=== PATIENT | female | born 1950 | race Caucasian/White ===

== ENCOUNTER 2021-04-10 09:21 | Inpatient (IN) | payer MEDICARE, OTHER ==
[2021-04-10] MEDS ORDERED: HEPARIN SODIUM 1,000 UN/ML (10ML VL) IV ONE (09:40)
[2021-04-10] MEDS ORDERED: HEPARIN SODIUM 1,000 UN/ML (10ML VL) IV PRN (09:40)
[2021-04-10] MEDS ORDERED: DILTIAZEM DRIP BOLUS FROM BAG 1 MG SOLN IV ONE (09:40)
[2021-04-10 09:52] LABS: Basophils # (A) 0.1 k/uL (0-0.2); Basophils % (A) 1 %; Eosinophils # (A) 0.2 k/uL (0-0.7); Eosinophils % (A) 2 %; HGB 15.2 gm/dL (11.4-16.0); Lymphocytes # (A) 2.5 k/uL (1.0-4.8); Lymphocytes % (A) 28 %; MCHC 32.4 g/dL (31.0-37.0); MCV 92.5 fL (80.0-100.0); Mean Platelet Volume 7.8; Monocytes # (A) 0.3 k/uL (0-1.0); Monocytes % (A) 4 %; Neutrophils # (A) 5.6 k/uL (1.3-7.7); Neutrophils % (A) 64 %; Platelet Count 352 k/uL (150-450); RBC 5.08 m/uL (3.80-5.40); RDW 14.3 % (11.5-15.5); WBC 8.7 k/uL (3.8-10.6)
[2021-04-10] MEDS: HEPARIN SOD,PORK IN 0.45% NACL 25,000 UNIT in 0.45% NACL 1 250ML.BAG IV SCH (09:58)
[2021-04-10] MEDS ORDERED: DILTIAZEM 125 MG in SODIUM CHLORIDE 0.9% 100 ML IV SCH (10:00)
[2021-04-10 10:03] LABS: Partial Thromboplastin Time 22.8 sec (22.0-30.0); Prothrombin Time 10.3 sec (9.0-12.0)
[2021-04-10 10:06] LABS: Albumin 4.6 g/dL (3.5-5.0); Calcium 9.8 mg/dL (8.4-10.2); Potassium 4.2 mmol/L (3.5-5.1); Total Bilirubin 0.5 mg/dL (0.2-1.3); Total Protein 7.6 g/dL (6.3-8.2)
--- NOTE | 2021-04-10 10:10 | XR ---
EXAMINATION TYPE: XR chest 2V DATE OF EXAM: 04/10/2021 COMPARISON: None HISTORY: 70-year-old female elevated heart rate, dysrhythmia TECHNIQUE: PA and lateral views FINDINGS: The cardiomediastinal silhouette, aorta, and pulmonary vasculature are within normal limits. Hazy low er lung opacities related to overlying soft tissue. Otherwise, lungs and pleural spaces are clear. IMPRESSION: No acute cardiopulmonary process.
--- NOTE | 2021-04-10 10:15 | ED ---
Arrhythmia/Palpitations HPI - General Source: patient, RN notes reviewed Mode of arrival: wheelchair Limitations: no limitations <Fan Justice - Last Filed: 04/10/21 11:34> <Vinay Gonzalez - Last Filed: 04/10/21 13:21> - General Chief Complaint: Arrhythmia/Palpitations Stated Complaint: palpitations Time Seen by Provider: 04/10/21 09:33 - History of Present Illness Initial Comments: This a 70-year-old female presents emergency from chief complaint of palpitations. Patient states that she has not felt well the last few days. Patient went to [facility] and told she needs go the emergency department. Patient states she has no chest pains time she occasionally has some shortness of breath. Patient states that she has no prior cardiac disease denies any blood thinners denies any leg pain leg swelling. Patient does have a history of hypothyroidism. Patient's had no medication changes recently has been taking her doses. (Fan Justice) - Related Data Home Medications Medication Instructions Recorded Confirmed Levothyroxine Sodium 88 mcg PO DAILY 04/10/21 04/10/21 Allergies Allergy/AdvReac Type Severity Reaction Status Date / Time No Known Allergies Allergy Verified 04/10/21 09:28 Review of Systems ROS Other: All systems not noted in ROS Statement are negative. <Fan Justice - Last Filed: 04/10/21 11:34> ROS Other: All systems not noted in ROS Statement are negative. <Vinay Gonzalez - Last Filed: 04/10/21 13:21> ROS Statement: Those systems with pertinent positive or pertinent negative responses have been documented in the HPI. Past Medical History Past Medical History: Thyroid Disorder History of Any Multi-Drug Resistant Organisms: None Reported Past Surgical History: Hysterectomy, Orthopedic Surgery Additional Past Surgical History / Comment(s): hip surgery Past Psychological History: No Psychological Hx Reported Smoking Status: Former smoker Past Alcohol Use History: Occasional Past Drug Use History: None Reported <Fan Justice - Last Filed: 04/10/21 11:34> General Exam Limitations: no limitations General appearance: alert, in no apparent distress Head exam: Present: atraumatic, normocephalic, normal inspection Eye exam: Present: normal appearance, PERRL, EOMI. Absent: scleral icterus, conjunctival injection, periorbital swelling ENT exam: Present: normal exam, mucous membranes moist Neck exam: Present: normal inspection. Absent: tenderness, meningismus, lymphadenopathy Respiratory exam: Present: normal lung sounds bilaterally. Absent: respiratory distress, wheezes, rales, rhonchi, stridor Cardiovascular Exam: Present: tachycardia, irregular rhythm, normal heart sounds. Absent: regular rate, normal rhythm, systolic murmur, diastolic murmur, rubs, gallop, clicks GI/Abdominal exam: Present: soft, normal bowel sounds. Absent: distended, tenderness, guarding, rebound, rigid <Fan Justice - Last Filed: 04/10/21 11:34> Course <Vinay Gonzalez - Last Filed: 04/10/21 13:21> Vital Signs 04/10/21 04/10/21 04/10/21 09:24 09:49 12:09 Temperature 98.4 F Pulse Rate 169 H 158 H 115 H Respiratory 16 20 18 Rate Blood Pressure 160/92 173/117 140/75 O2 Sat by Pulse 97 99 99 Oximetry - Reevaluation(s) Reevaluation #1: 04/10/21 13:20 I did personally evaluate the patient and care I do agree with assessment and plan patient comes in with findings consistent with A. flutter RVR. He admitted 04/10/21 13:21 (Vinay Gonzalez) EKG Findings - EKG Comments: EKG Findings:: EKG 499:30 for atrial flutter with 2-1 rate of 157 QRS 82 QT/QTc to 232/375 <Fan Justice - Last Filed: 04/10/21 11:34> Medical Decision Making - Lab Data Result diagrams: 04/10/21 09:44 04/10/21 09:44 <Fan Justice - Last Filed: 04/10/21 11:34> - Lab Data Result diagrams: 04/10/21 09:44 04/10/21 09:44 <Vinay Gonzalez - Last Filed: 04/10/21 13:21> - Medical Decision Making 70-year-old female presented for palpitations. Patient found to be in a flutter, A. fib. Patient has no history. Patient started on Cardizem, heparin. Patient lives otherwise unremarkable be admitted for cardiology evaluation. (Fan Justice) - Lab Data Lab Results 04/10/21 04/10/2104/10/21 Range/Units 09:44 09:44 09:44 WBC (3.8-10.6) k/uL RBC (3.80-5.40) m/uL Hgb (11.4-16.0) gm/dL Hct (34.0-46.0) % MCV (80.0-100.0) fL MCH (25.0-35.0) pg MCHC (31.0-37.0) g/dL RDW (11.5-15.5) % Plt Count (150-450) k/uL MPV Neutrophils % % Lymphocytes % % Monocytes % % Eosinophils % % Basophils % % Neutrophils # (1.3-7.7) k/uL Lymphocytes # (1.0-4.8) k/uL Monocytes # (0-1.0) k/uL Eosinophils # (0-0.7) k/uL Basophils # (0-0.2) k/uL PT 10.3 (9.0-12.0) sec INR 1.0 (<1.2) APTT 22.8 (22.0-30.0) sec Sodium 143 (137-145) mmol/L Potassium 4.2 (3.5-5.1) mmol/L Chloride 110 H (98-107) mmol/L Carbon Dioxide 26 (22-30) mmol/L Anion Gap 7 mmol/L BUN 15 (7-17) mg/dL Creatinine 0.86 (0.52-1.04) mg/dL Est GFR (CKD-EPI)AfAm 80 (>60 ml/min/1.73 sqM) Est GFR (CKD-EPI)NonAf 70 (>60 ml/min/1.73 sqM) Glucose 107 H (74-99) mg/dL Calcium 9.8 (8.4-10.2) mg/dL Magnesium 2.0 (1.6-2.3) mg/dL Total Bilirubin 0.5 (0.2-1.3) mg/dL AST 27 (14-36) U/L ALT 18 (4-34) U/L Alkaline Phosphatase 120 (38-126) U/L Troponin I <0.012 (0.000-0.034) ng/mL Total Protein 7.6 (6.3-8.2) g/dL Albumin 4.6 (3.5-5.0) g/dL 04/10/21 Range/Units 09:44 WBC 8.7 (3.8-10.6) k/uL RBC 5.08 (3.80-5.40) m/uL Hgb 15.2 (11.4-16.0) gm/dL Hct 47.0 H (34.0-46.0) % MCV 92.5 (80.0-100.0) fL MCH 30.0 (25.0-35.0) pg MCHC 32.4 (31.0-37.0) g/dL RDW 14.3 (11.5-15.5) % Plt Count 352 (150-450) k/uL MPV 7.8 Neutrophils % 64 % Lymphocytes % 28 % Monocytes % 4 % Eosinophils % 2 % Basophils % 1 % Neutrophils # 5.6 (1.3-7.7) k/uL Lymphocytes # 2.5 (1.0-4.8) k/uL Monocytes # 0.3 (0-1.0) k/uL Eosinophils # 0.2 (0-0.7) k/uL Basophils # 0.1 (0-0.2) k/uL PT (9.0-12.0) sec INR (<1.2) APTT (22.0-30.0) sec Sodium (137-145) mmol/L Potassium (3.5-5.1) mmol/L Chloride (98-107) mmol/L Carbon Dioxide (22-30) mmol/L Anion Gap mmol/L BUN (7-17) mg/dL Creatinine (0.52-1.04) mg/dL Est GFR (CKD-EPI)AfAm (>60 ml/min/1.73 sqM) Est GFR (CKD-EPI)NonAf (>60 ml/min/1.73 sqM) Glucose (74-99) mg/dL Calcium (8.4-10.2) mg/dL Magnesium (1.6-2.3) mg/dL Total Bilirubin (0.2-1.3) mg/dL AST (14-36) U/L ALT (4-34) U/L Alkaline Phosphatase (38-126) U/L Troponin I (0.000-0.034) ng/mL Total Protein (6.3-8.2) g/dL Albumin (3.5-5.0) g/dL Critical Care Time Critical Care Time: Yes Total Critical Care Time: 35 <Fan Justice - Last Filed: 04/10/21 11:34> Disposition <Fan Justice - Last Filed: 04/10/21 11:34> <Vinay Gonzalez - Last Filed: 04/10/21 13:21> Clinical Impression: Atrial flutter with rapid ventricular response Disposition: ADMITTED IP TO THIS HOSP Condition: Fair
[2021-04-10] MEDS ORDERED: NALOXONE 0.4 MG/ML 1 ML VIAL IV PRN ×2 (11:35→14:41)
[2021-04-10] MEDS ORDERED: ACETAMINOPHEN TAB 325 MG TAB PO PRN (11:35)
[2021-04-10] MEDS ORDERED: DILTIAZEM 5 MG/ML 5 ML VIAL IVP STA (11:43)
[2021-04-10] MEDS ORDERED: METOPROLOL TARTRATE 25 MG TAB PO STA (13:49)
[2021-04-10] MEDS ORDERED: SODIUM CHLORIDE 0.9% 500 ML 500 ML IV ONE (13:49)
[2021-04-10] MEDS: DILTIAZEM 125 MG in SODIUM CHLORIDE 0.9% 100 ML IV SCH ×2 (13:50→20:59)
[2021-04-10] MEDS ORDERED: HYDROcodone/APAP 5-325MG 1 EACH TAB PO PRN (14:41)
--- NOTE | 2021-04-10 14:53 | P.HPIM ---
<Reji Crabtree - Last Filed: 04/10/21 14:38> History of Present Illness H&P Date: 04/10/21 History of Presenting Illness: Patient is a 70-year-old female with past medical history of hypothyroidism presented to the emergency department with a chief complaint of palpitations. Patient seen and fully evaluated at bedside in the emergency department and reports that she began experiencing intermittent episodes of palpitations accompanied by a tightness in her throat and dizziness on and off over the past few days. Patient reports upon awakening today these palpitations were s ignificantly worsened so she went to the urgent care center and was instructed to go straight to the emergency department. She denies having any recent changes and her Synthroid dosage and denies having any other complaints including recent illness or exposure to known L contact, headache, changes in vision or hearing, changes in or difficulties with speech, chest pain, shortness of breath, dyspnea with exertion, abdominal pain, nausea, vomiting, or experiencing any changes in her difficulties with urinary or bowel function, or experiencing any numbness/tingling/weakness/swelling in her extremities. An EKG was completed revealing atrial fibrillation with a rapid ventricular response at 157 bpm. Labs were drawn with CBC, Coags, CMP, and troponin all unremarkable showing no abnormalities. Patient was started on Cardizem infusion for rate control a along with anticoagulation for heparin admitted under our services with consultation to cardiology. Review of systems: Pertinent positives and negatives as discussed in HPI, a complete review of systems was performed and all other systems are negative. Physical exam: Vital signs reviewed and stable. General: Nontoxic, no distress and appears stated age. Derm: Skin warm and dry, normal coloration for ethnicity. Head: Atraumatic, normocephalic and symmetric. Eyes: EOMs intact, no lid lag, and anicteric sclera Mouth: no lip lesions, mucus membranes moist Cardiovascular: regular rate and rhythm with normal S1S2, no murmur, positive posterior tibial pulses bilaterally, and cap refill < 2 seconds. Lungs: Respirations even, regular, and unlabored on room air. Lungs CTA bilaterally, no rhonchi, no rales, no wheezing, and no accessory muscle usage. Abdominal: soft, nontender to palpation, no guarding, no appreciable organomegaly Ext: ROM intact. No gross muscle atrophy, no edema, no contractures Neuro: Speech clear, face symmetrical and CN II-XII grossly intact with no noted focal neuro deficits Psych: Alert and oriented to person, place, time, and situation. Appropriate and pleasant affect. Assessment and Plan of Care: Atrial fibrillation with RVR -EKG was completed revealing atrial fibrillation with a rapid ventricular response at 157 bpm. -Troponin<0.012, we will trend every 3 hours 2. -Anticoagulation with heparin infusion, pharmacy to dose. [id number] score 1. -Continuation of Cardizem infusion titrating to maintain ventricular rate less than 110 bpm. -Metoprolol 25 mg twice a day. -Telemetry monitoring. -Consult to cardiology, appreciate recommendations. -Obtain TSH -Echocardiogram. Hypothyroidism -Hold Synthroid pending TSH results The patient is admitted with an anticipated greater than 2 midnight stay for evaluation of new onset atrial fibrillation with RVR CODE STATUS: Full code DVT prophylaxis: Heparin Discussed with: Patient, patient has been, and RN Anticipated discharge date: Clinical course to determine Anticipated discharge place: Home A total of 45 minutes was spent on the care of this complex patient more than 50% of the time was spent in counseling and care coordination. Past Medical History Past Medical History: Thyroid Disorder History of Any Multi-Drug Resistant Organisms: None Reported Past Surgical History: Hysterectomy, Orthopedic Surgery Additional Past Surgical History / Comment(s): hip surgery Past Psychological History: No Psychological Hx Reported Smoking Status: Former smoker Past Alcohol Use History: Occasional Past Drug Use History: None Reported Medications and Allergies Home Medications Medication Instructions Recorded Confirmed Type Levothyroxine Sodium 88 mcg PO DAILY 04/10/21 04/10/21 History Allergies Allergy/AdvReac Type Severity Reaction Status Date / Time No Known Allergies Allergy Verified 04/10/21 09:28 Physical Exam Vitals: Vital Signs Temp Pulse Resp BP Pulse Ox 04/10/21 12:09 115 H 18 140/75 99 04/10/21 09:49 158 H 20 173/117 99 04/10/21 09:24 98.4 F 169 H 16 160/92 97 Intake and Output 04/09/21 04/10/21 04/10/21 22:59 06:59 14:59 Intake Total 8.5 Balance 8.5 Intake: Intake, IV Titration 8.5 Amount Diltiazem 125 mg In 8.5 Sodium Chloride 0.9% 100 ml @ 5 MG/HR 5 mls/hr IV .Q24H [facility] Rx#:[id number] Other: Weight 79.379 kg Results CBC & Chem 7: 04/10/21 09:44 04/10/21 09:44 Labs: Abnormal Lab Results - Last 24 Hours (Table) 04/10/21 04/10/21 Range/Units 09:44 09:44 Hct 47.0 H (34.0-46.0) % Chloride 110 H (98-107) mmol/L Glucose 107 H (74-99) mg/dL <Martina Duncan - Last Filed: 04/10/21 19:43> History of Present Illness Patient seen and examined independently. Patient was also seen by Reji Crabtree NP and case was discussed. I am in agreement with subjective, physical exam, assessment and plan as written above and amended below. Excoriation can still feel her palpitations. On assessment her heart rate was still in the 160s. Nursing will increase Cardizem drip to 15. Ativan oral dose of metoprolol 25 mg. Patient reports that she has had low heart rates after taking a blood pressure medication in the past. We'll monitor closely on telemetry. General: non toxic, no distress, appears at stated age Derm: warm, dry Head: atraumatic, normocephalic, symmetric Eyes: EOMI, no lid lag, anicteric sclera Mouth: no lip lesion, mucus membranes moist Cardiovascular: [S1S2 irreg, no murmur, positive posterior tibial pulse bilateral, Lungs: CTA bilateral, no rhonchi, no rales , no accessory muscle use Past Medical History - Past Family History Father Family Medical History: Cancer Additional Family Medical History / Comment(s): lung cancer, ETOH Mother Family Medical History: COPD Sister(s) Family Medical History: Cancer, Hypertension Physical Exam Osteopathic Statement: *. No significant issues noted on an osteopathic structural exam other than those noted in the History and Physical/Consult. Vitals: Vital Signs Temp Pulse Pulse Resp BP BP Pulse Ox 04/10/21 15:45 98.2 F 70 16 158/72 98 04/10/21 13:54 100 18 103/78 96 04/10/21 12:09 115 H 18 140/75 99 04/10/21 09:49 158 H 20 173/117 99 04/10/21 09:24 98.4 F 169 H 16 160/92 97 Intake and Output 04/10/21 04/10/21 04/10/21 06:59 14:59 22:59 Intake Total 29.667 540 Balance 29.667 540 Intake: Intake, IV Titration 29.667 Amount Diltiazem 125 mg In 29.667 Sodium Chloride 0.9% 100 ml @ 5 MG/HR 5 mls/hr IV .Q24H [facility] Rx#:[id number] Oral 540 Other: # Voids 1 Weight 79.379 kg 79.379 kg Results CBC & Chem 7: 04/10/21 09:44 04/10/21 09:44 Labs: Abnormal Lab Results - Last 24 Hours (Table) 04/10/21 04/10/21 04/10/21 Range/Units 09:44 09:44 09:44 Hct 47.0 H (34.0-46.0) % APTT (22.0-30.0) sec Chloride 110 H (98-107) mmol/L Glucose 107 H (74-99) mg/dL TSH 0.221 L (0.465-4.680) mIU/L 04/10/21 Range/Units 17:31 Hct (34.0-46.0) % APTT 44.7 H (22.0-30.0) sec Chloride (98-107) mmol/L Glucose (74-99) mg/dL TSH (0.465-4.680) mIU/L
[2021-04-10 15:16] LABS: T4, Free (Free Thyroxine) 1.84 ng/dL (0.78-2.19)
[2021-04-10] MEDS ORDERED: ONDANSETRON 4 MG/2 ML VIAL IVP PRN (18:42)
[2021-04-10] MEDS ORDERED: METOPROLOL TARTRATE 25 MG TAB PO SCH (21:00)
[2021-04-11 04:45] VITALS: RESP 16
[2021-04-11] MEDS: DILTIAZEM 125 MG in SODIUM CHLORIDE 0.9% 100 ML IV SCH (08:23)
[2021-04-11] MEDS: METOPROLOL TARTRATE 50 MG TAB PO SCH ×2 (08:42→20:38)
[2021-04-11] MEDS: HEPARIN SOD,PORK IN 0.45% NACL 25,000 UNIT in 0.45% NACL 1 250ML.BAG IV SCH (08:52)
--- NOTE | 2021-04-11 09:53 | P.PN ---
<Reji Crabtree - Last Filed: 04/11/21 11:03> Subjective Progress Note Date: 04/11/21 History of Presenting Illness: Patient is a 70-year-old female with past medical history of hypothyroidism presented to the emergency department with a chief complaint of palpitations. Patient seen and fully evaluated at bedside in the emergency department and reports that she began experiencing intermittent episodes of palpitations accompanied by a tightness in her throat and dizziness on and off over the past few days. Patient reports upon awakening today these palpitations were signifi cantly worsened so she went to the urgent care center and was instructed to go straight to the emergency department. She denies having any recent changes and her Synthroid dosage and denies having any other complaints including recent illness or exposure to known L contact, headache, changes in vision or hearing, changes in or difficulties with speech, chest pain, shortness of breath, dyspnea with exertion, abdominal pain, nausea, vomiting, or experiencing any changes in her difficulties with urinary or bowel function, or experiencing any numbness/tingling/weakness/swelling in her extremities. An EKG was completed revealing atrial fibrillation with a rapid ventricular response at 157 bpm. Labs were drawn with CBC, Coags, CMP, and troponin all unremarkable showing no abnormalities. Patient was started on Cardizem infusion for rate control a along with anticoagulation for heparin admitted under our services with consultation to cardiology. Cardizem infusion was discontinued and pt started on Flecainide by cardiology. Physical exam: Pt seen and fully evaluated at the bedside this morning. She reports she continues to have palpitations and episodes of lightheadedness. She denies having any headache, changes in vision, changes in hearing, changes in or difficulties with her speech, dysphasia, chest pain, shortness of breath, or exp eriencing any numbness/tingling/weakness/swelling in her extremities. Patient remains in A. fib with rate fluctuating between 90s and 110s at time of assessment. TSH was low at 0.221 however free T4 was normal at 1.84. She currently remains on anticoagulation with heparin infusion, Eliquis prescription has been sent to pharmacy to verify insurance coverage and patient will be changed over to oral anticoagulation once insurance verification on which oral anticoagulant is covered can be completed. Cardizem infusion discontinued and patient started on flecainide and Toprol dose increased to 50 mg twice daily. Vital signs reviewed and stable. General: Nontoxic, no distress and appears stated age. Derm: Skin warm and dry, normal coloration for ethnicity. Head: Atraumatic, normocephalic and symmetric. Eyes: EOMs intact, no lid lag, and anicteric sclera Mouth: no lip lesions, mucus membranes moist Cardiovascular: IRREGULARLY IRREGULAR, no murmur, positive posterior tibial pulses bilaterally, and cap refill < 2 seconds. Lungs: Respirations even, regular, and unlabored on room air. Lungs CTA bilaterally, no rhonchi, no rales, no wheezing, and no accessory muscle usage. Abdominal: soft, nontender to palpation, no guarding, no appreciable organomegaly Ext: ROM intact. No gross muscle atrophy, no edema, no contractures Neuro: Speech clear, face symmetrical and CN II-XII grossly intact with no noted focal neuro deficits Psych: Alert and oriented to person, place, time, and situation. Appropriate and pleasant affect. Assessment and Plan of Care: Atrial fibrillation with RVR -EKG was completed revealing atrial fibrillation with a rapid ventricular response at 157 bpm. -Troponin<0.012, we will trend every 3 hours 2. -Anticoagulation with heparin infusion, pharmacy to dose. [id number] score 1. -Cardizem infusion was discontinued and pt started on Flecainide by cardiology. Currently pt remains in a-fib with rate at time of assessment fluctuating between 90's-110's. -Metoprolol increased to 50 mg twice a day. -Telemetry monitoring. -Cardiology following, appreciate further recommendations. -TSH slightly low at 0.221, however free T4 was normal at 1.84. Synthroid dose decreased to 50 g daily. -Echocardiogram. Hypothyroidism -TSH slightly low at 0.221, however free T4 was normal at 1.84. -Synthroid dose decreased to 50 g daily. -Patient to be educated upon discharge that she will need to follow up with her PCP/crossbar frame wirer for repeat testing of thyroid function in approximately 6-8 weeks. CODE STATUS: Full code DVT prophylaxis: Heparin Discussed with: Patient, patient has been, and RN Anticipated discharge date: Clinical course to determine Anticipated discharge place: Home A total of 45 minutes was spent on the care of this complex patient more than 50% of the time was spent in counseling and care coordination. Objective - Vital Signs Vital signs: Vital Signs Temp 98.2 F 04/11/21 08:00 Pulse 80 04/11/21 08:00 Resp 16 04/11/21 08:00 BP 134/77 04/11/21 08:00 Pulse Ox 96 04/11/21 08:00 Intake & Output 04/10/21 04/11/21 04/11/21 18:59 06:59 18:59 Intake Total 569.667 107.25 399.081 Balance 569.667 107.25 399.081 Weight 79.379 kg 79.2 kg Intake: Intake, IV Titration 29.667 107.25 399.081 Amount Diltiazem 125 mg In 107.25 85.625 Sodium Chloride 0.9% 100 ml @ 15 MG/HR 15 mls/hr IV .Q8H20M [facility] Rx#: [id number] Diltiazem 125 mg In 29.667 95.333 Sodium Chloride 0.9% 100 ml @ 5 MG/HR 5 mls/hr IV .Q24H [facility] Rx#:[id number] Heparin Sod,Pork in 0.45% 218.123 NaCl 25,000 unit In 0.45 % NaCl 1 250ml.bag @ 12 UNITS/KG/HR 9.525 mls/hr IV .Q24H [facility] Rx#: [id number] Oral 540 Other: Voiding Method Toilet # Voids 1 1 - Labs CBC & Chem 7: 04/10/21 09:44 04/10/21 09:44 Labs: Abnormal Lab Results - Last 24 Hours (Table) 04/10/21 04/10/21 04/10/21 Range/Units 09:44 09:44 09:44 Hct 47.0 H (34.0-46.0) % APTT (22.0-30.0) sec Chloride 110 H (98-107) mmol/L Glucose 107 H (74-99) mg/dL TSH 0.221 L (0.465-4.680) mIU/L 04/10/21 Range/Units 17:31 Hct (34.0-46.0) % APTT 44.7 H (22.0-30.0) sec Chloride (98-107) mmol/L Glucose (74-99) mg/dL TSH (0.465-4.680) mIU/L <Martina Duncan A - Last Filed: 04/11/21 19:40> Subjective Reji Crabtree NP rendered care for this patient independently, reviewed the f indings and plan as documented in the note above. I did not physically speak with or examine the patient on this date. Objective - Vital Signs Vital signs: Vital Signs Temp 98 F 04/11/21 16:00 Pulse 67 04/11/21 12:00 Resp 16 04/11/21 16:00 BP 140/64 04/11/21 16:00 Pulse Ox 98 04/11/21 16:00 Intake & Output 04/11/21 04/11/21 04/12/21 06:59 18:59 06:59 Intake Total 107.25 667.021 Balance 107.25 667.021 Weight 79.2 kg Intake: Intake, IV Titration 107.25 427.021 Amount Diltiazem 125 mg In 95.333 Sodium Chloride 0.9% 100 ml @ 5 MG/HR 5 mls/hr IV .Q24H [facility] Rx#:[id number] Diltiazem 125 mg In 107.25 85.625 Sodium Chloride 0.9% 100 ml @ 5 MG/HR 5 mls/hr IV .Q24H [facility] Rx#:[id number] Heparin Sod,Pork in 0.45% 246.063 NaCl 25,000 unit In 0.45 % NaCl 1 250ml.bag @ 12 UNITS/KG/HR 9.525 mls/hr IV .Q24H [facility] Rx#: [id number] Oral 240 Other: Voiding Method Toilet # Voids 1 2 - Labs CBC & Chem 7: 04/10/21 09:44 04/10/21 09:44
[2021-04-11] MEDS: FLECAINIDE 50 MG TAB PO SCH (10:45)
[2021-04-11] MEDS: APIXABAN 5 MG TAB PO SCH ×2 (11:53→20:38)
--- NOTE | 2021-04-11 11:59 | ECHOF ---
Referral Reason:New-onset atrial fibrillation with RVR MEASUREMENTS -------- HEIGHT: 160.0 cm WEIGHT: 78.9 kg BP: 127/73 RVIDd: 2.6 cm (< 3.3) IVSd: 1.1 cm (0.6 - 1.1) LVIDd: 3.4 cm (3.9 - 5.3) LVPWd: 1.3 cm (0.6 - 1.1) IVSs: 2.1 cm LVIDs: 1.9 cm LVPWs: 2.1 cm LAESV Index (A-L): 28.41 ml/m Ao Diam: 2.6 cm (2.0 - 3.7) AV Cusp: 1.8 cm (1.5 - 2.6) LA Diam: 3.1 cm (2.7 - 3.8) MV EXCURSION: 19.783 mm (> 18.000) MV EF SLOPE: 165 mm/s (70 - 150) EPSS: 0.9 cm AR PHT: 341 ms RAP: 5.00 mmHg RVSP: 20.46 mmHg FINDINGS -------- Atrial fibrillation. This was a technically good study. The left ventricular size is normal. There is mild concentric left ventricular hypertrophy. Overa ll left ventricular systolic function is normal with, an EF between 55 - 60 %. The right ventricle is normal in size. The left atrial size is normal. Normal LA size by volume 22+/-6 ml/m2. The right atrial size is normal. The aortic valve is trileaflet and appears structurally normal. Trace amount of aortic regurgitatio n. The mitral valve is normal. Mild mitral regurgitation is present. The tricuspid valve appears structurally normal. Trace tricuspid regurgitation present. Right anurag tricular systolic pressure is normal at < 35 mmHg. There is no pulmonic regurgitation present. The aortic root size is normal. Normal inferior vena cava with normal inspiratory collapse consistent with estimated right atrial pre ssure of 5 mmHg. There is no pericardial effusion. CONCLUSIONS -------- 1. The left ventricular size is normal. 2. There is mild concentric left ventricular hypertrophy. 3. Overall left ventricular systolic function is normal with, an EF between 55 - 60 %. 4. Trace amount of aortic regurgitation. 5. Mild mitral regurgitation is present. 6. Trace tricuspid regurgitation present. 7. There is no pericardial effusion. REPAIRER CONTROLLER TESTER: Maryjane Justice RDCS
--- NOTE | 2021-04-11 12:21 | P.CRDCN ---
History of Present Illness History of present illness: HISTORY OF PRESENTING ILLNESS This is a pleasant 70-year-old female past medical history significant for hypothyroidism. She states she has seen a database designer before in [place]. She is from [place] and is here on vacation for 2 weeks. We have been asked to see in consultation for new onset atrial flutter. Patient presented to the emergency department with a chief complaint of palpitations. She states that on Saturday she started to not "feel well". She denies specific nausea, vomiting, abdominal pain. Since Saturday she has been experiencing worsening intermittent episodes of palpitations, tightness in throat, lightheadness over the past few days. Yesterday, her palpitations were significantly worsened so she first presented to an urgent care and was instructed to go to the emergency department. She denies having any recent changes and her Synthroid dosage. She denies chest pain, shortness of breath, recent illness or exposure, never had covid-19 infection, dyspnea on exertion. She does state she has chronic abdominal pain, some nausea and diarrhea and has worked up as an outpatient before and currently takes Metamucil and Immodium. She states in the past year she has seen a database designer in [place], she has been told she has occasional extra beats, she also had an echocardiogram and was told it was normal and that she has mild mitral regurgitation, she has had stress tests in the past which she was told were normal. She denies history of hypertension, diabetes, stroke, MA, hyperlipidemia. She denies family history of heart disease. She occasionally drinks alcohol about 3 glasses a wine a week and denies tobacco use. EKG on admission revealed atrial flutter 2:1 conduction HR 150s. Patient received 125 mg Cardizem bolus and started on a Cardizem drip at 15mg/hr weaned to 7.5mg/hr this morning. Patient converted back to sinus rhythm with premature atrial complexes currently HR 60-90s. Current home medications include synthroid 88mcg. Chest xray no acute cardiopulmonary process Laboratory reviewed, CBC unremarkable, sodium 143, potassium 4.2, BUN 15, serum creatinine 0.8, troponin negative 1, TSH 0.2, free T4 1 0.8 REVIEW OF SYSTEMS At the time of my exam: CONSTITUTIONAL: Denies fever or chills. CARDIOVASCULAR: +palpitations, Denies chest pain, shortness of breath, orthopnea, PND RESPIRATORY: Denies cough. GASTROINTESTINAL: Denies abdominal pain, diarrhea, constipation, nausea or vomiting. MUSCULOSKELETAL: Denies myalgias. NEUROLOGIC: +dizziness, +lightheadedess. Denies numbness, tingling, headacbe or weakness. ENDOCRINE: Denies fatigue, weight change, polydipsia or polyurina. GENITOURINARY: Denies burning, hematuria or urgency with micturation. HEMATOLOGIC: Denies history of anemia or bleeding. PHYSICAL EXAMINATION CONSTITUTIONAL: No apparent distress. HEENT: Head is normocephalic. Pupils are equal, round. Sclerae anicteric. Mucous membranes of the mouth are moist. No JVD. No carotid bruit. CHEST EXAMINATION: Lungs are clear to auscultation. No chest wall tenderness is noted on palpation or with deep breathing. HEART EXAMINATION: Regular rate and rhythm. S1, S2 heard. No murmurs, gallops or rub. ABDOMEN: Soft, nontender. Positive bowel sounds. EXTREMITIES: 2+ peripheral pulses, no lower extremity edema and no calf tenderness. SKIN: intact NEUROLOGIC EXAMINATION: Patient is awake, alert and oriented x3. ASSESSMENT Typical Atrial Flutter, new onset -[id number] score 2 Hypothyroidism PLAN -Obtain 2D echocardiogram- which revealed EF 55-60%, mild mitral regurgitation -Repeat EKG this morning completed and reviewed -For Rate Control metoprolol tartrate 50mg BID and start flecainide 50mg BID -Anticoagulation start Eliquis 5mg BID, Case management consulted, patient does have a free month of Eliquis. Case management unable to dent Eliquis due to insurance at this time, patient is calling in regards to coverage. -From a cardiology perspective, if patient feeling well and stable, ok to discharge later today. Patient will be in town for about 1 more week. Recommend follow up with Dr. Romano prior to going back to [place]. Patient states she does have a database designer in [place] that she can follow up with. Nurse Practitioner note has been reviewed, I agree with a documented findings and plan of care. Patient was seen and examined. Past Medical History Past Medical History: Thyroid Disorder Additional Past Medical History / Comment(s): mitral valve regurgitation History of Any Multi-Drug Resistant Organisms: None Reported Past Surgical History: Hysterectomy, Orthopedic Surgery Additional Past Surgical History / Comment(s): hip surgery Past Anesthesia/Blood Transfusion Reactions: Previous Problems w/ Anesthesia Additional Past Anesthesia/Blood Transfusion Reaction / Comment(s): hard to wake up Past Psychological History: No Psychological Hx Reported Smoking Status: Never smoker Past Alcohol Use History: Occasional Past Drug Use History: None Reported - Past Family History Father Family Medical History: Cancer Additional Family Medical History / Comment(s): lung cancer, ETOH Mother Family Medical History: COPD Sister(s) Family Medical History: Cancer, Hypertension Medications and Allergies Home Medications Medication Instructions Recorded Confirmed Type Apixaban [Eliquis] 5 mg PO BID 90 Days #180 tab 04/11/21 Rx Flecainide [Tambocor] 50 mg PO Q12HR 90 Days #180 tab 04/11/21 Rx Levothyroxine Sodium [Synthroid] 50 mcg PO DAILY@0630 60 Days #30 04/11/21 Rx tab Metoprolol Tartrate [Lopressor] 50 mg PO BID 90 Days #180 tab 04/11/21 Rx Allergies Allergy/AdvReac Type Severity Reaction Status Date / Time No Known Allergies Allergy Verified 04/10/21 09:28 Physical Exam Vitals: Vital Signs Temp Pulse Pulse Resp BP BP Pulse Ox 04/11/21 04:00 92 16 127/73 98 04/11/21 00:00 97.9 F 69 18 121/75 98 04/10/21 20:00 98.2 F 96 16 145/86 98 04/10/21 15:45 98.2 F 70 16 158/72 98 04/10/21 13:54 100 18 103/78 96 04/10/21 12:09 115 H 18 140/75 99 04/10/21 09:49 158 H 20 173/117 99 04/10/21 09:24 98.4 F 169 H 16 160/92 97 Intake and Output 04/10/21 04/10/21 04/11/21 14:59 22:59 06:59 Intake Total 7 647.25 Balance 647.25 Intake: Intake, IV Titration 107.25 Amount Diltiazem 125 mg In 107.25 Sodium Chloride 0.9% 100 ml @ 15 MG/HR 15 mls/hr IV .Q8H20M [facility] Rx#: [id number] Diltiazem 125 mg In 29.667 Sodium Chloride 0.9% 100 ml @ 5 MG/HR 5 mls/hr IV .Q24H [facility] Rx#:[id number] Oral 540 Other: # Voids 1 1 Weight 79.379 kg 79.379 kg 79.2 kg Results 04/10/21 09:44 04/10/21 09:44 Cardiac Enzymes 04/10/21 04/10/21 Range/Units 09:44 09:44 AST 27 (14-36) U/L Troponin I <0.012 (0.000-0.034) ng/mL Coagulation 04/10/21 04/10/21 Range/Units 09:44 17:31 PT 10.3 (9.0-12.0) sec APTT 22.8 44.7 H (22.0-30.0) sec CBC 04/10/21 Range/Units 09:44 WBC 8.7 (3.8-10.6) k/uL RBC 5.08 (3.80-5.40) m/uL Hgb 15.2 (11.4-16.0) gm/dL Hct 47.0 H (34.0-46.0) % Plt Count 352 (150-450) k/uL Comprehensive Metabolic Panel 04/10/21 Range/Units 09:44 Sodium 143 (137-145) mmol/L Potassium 4.2 (3.5-5.1) mmol/L Chloride 110 H (98-107) mmol/L Carbon Dioxide 26 (22-30) mmol/L BUN 15 (7-17) mg/dL Creatinine 0.86 (0.52-1.04) mg/dL Glucose 107 H (74-99) mg/dL Calcium 9.8 (8.4-10.2) mg/dL AST 27 (14-36) U/L ALT 18 (4-34) U/L Alkaline Phosphatase 120 (38-126) U/L Total Protein 7.6 (6.3-8.2) g/dL Albumin 4.6 (3.5-5.0) g/dL Current Medications Generic Name Dose Route Start Last Admin Trade Name Freq PRN Reason Stop Dose Admin Acetaminophen 650 mg 04/10/21 11:35 04/10/21 17:43 Acetaminophen Tab 325 Mg Tab PO 650 mg Q6HR PRN Administration Mild Pain or Fever > 100.5 Hydrocodone Bitart/Acetaminophen 1 each 04/10/21 14:41 Hydrocodone/Apap 5-325mg 1 Each Tab PO Q4HR PRN Moderate Pain Heparin Sodium (Porcine) 0 unit 04/10/21 09:40 Heparin Sodium 1,000 Un/Ml (10ml Vl) IV PER PROTOCOL PRN Low PTT Protocol Heparin Sodium/Sodium Chloride 250 mls @ 9.525 mls/hr 04/10/21 09:45 04/10/21 09:58 25,000 unit/ Sodium Chloride IV 12 units/kg/hr .Q24H [facility] 9.525 mls/hr Administration Protocol 12 UNITS/KG/HR Diltiazem HCl 125 mg/ Sodium 125 mls @ 15 mls/hr 04/10/21 14:00 04/10/21 20:59 Chloride IV 7.5 mg/hr .Q8H20M [facility] 7.5 mls/hr Administration 15 MG/HR Metoprolol Tartrate 25 mg 04/10/21 21:00 04/10/21 20:54 Metoprolol Tartrate 25 Mg Tab PO 25 mg BID [facility] Administration Naloxone HCl 0.2 mg 04/10/21 14:41 Naloxone 0.4 Mg/Ml 1 Ml Vial IV Q2M PRN Opioid Reversal Ondansetron HCl 4 mg 04/10/21 18:42 Ondansetron 4 Mg/2 Ml Vial IVP Q6H PRN Nausea Intake and Output 04/10/21 04/10/21 04/11/21 14:59 22:59 06:59 Intake Total 29.667 647.25 Balance 29.667 647.25 Intake: Intake, IV Titration 29.667 107.25 Amount Diltiazem 125 mg In 107.25 Sodium Chloride 0.9% 100 ml @ 15 MG/HR 15 mls/hr IV .Q8H20M [facility] Rx#: [id number] Diltiazem 125 mg In 29.667 Sodium Chloride 0.9% 100 ml @ 5 MG/HR 5 mls/hr IV .Q24H [facility] Rx#:[id number] Oral 540 Other: # Voids 1 1 Weight 79.379 kg 79.379 kg 79.2 kg Patient Weight 04/11/21 06:59 Weight 79.2 kg 04/10/21 09:44 04/10/21 09:44
[2021-04-12] MEDS: FLECAINIDE 50 MG TAB PO SCH ×2 (06:18→08:34)
[2021-04-12] MEDS ORDERED: LEVOTHYROXINE 50 MCG TAB PO SCH (06:30)
[2021-04-12 06:39] LABS: HCT 39.6 % (34.0-46.0); HGB 12.9 gm/dL (11.4-16.0); MCH 30.1 pg (25.0-35.0); MCHC 32.6 g/dL (31.0-37.0); MCV 92.5 fL (80.0-100.0); Mean Platelet Volume 8.3; Platelet Count 278 k/uL (150-450); RBC 4.29 m/uL (3.80-5.40); WBC 7.8 k/uL (3.8-10.6)
[2021-04-12 06:53] LABS: Potassium 4.4 mmol/L (3.5-5.1)
[2021-04-12 08:00] VITALS: TEMP 97.6
[2021-04-12] MEDS: APIXABAN 5 MG TAB PO SCH (08:34)
[2021-04-12] MEDS: METOPROLOL TARTRATE 50 MG TAB PO SCH (08:34)
--- NOTE | 2021-04-12 11:31 | P.PN ---
Subjective This is a pleasant 70-year-old female past medical history significant for hypothyroidism. She states she has seen a volcanology teacher before in [place]. She is from [place] and is here on vacation for 2 weeks. We have been asked to see in consultation for new onset atrial flutter. Patient presented to the emergency department with a chief complaint of palpitations since Saturday. EKG on admission revealed atrial flutter 2:1 conduction HR 150s. Patient received 125 mg Cardizem bolus and started on a Cardizem drip at 15mg/hr weaned to 7.5mg/hr this morning. Patient converted back to sinus rhythm with premature atrial complexes currently HR 60-90s. Current home medications include synthroid 88mcg. Chest xray no acute cardiopulmonary process Laboratory reviewed, CBC unremarkable, sodium 143, potassium 4.2, BUN 15, serum creatinine 0.8, troponin negative 1, TSH 0.2, free T4 1 0.8. 04/12/2021: Patient seen and examined at bedside, no acute distress. She did state she had one episode of lightheadedness while sitting at the bedside, this resolved quickly. Yesterday and overnight with no complaints. She is able to ambulate with no complaints. She denies chest pain, lightheadedness, dizziness, palpitations, presyncope. Echocardiogram revealed EF 55-60%, mild mitral regurgitation. Repeat EKG yesterday reviewed and Flecainide was started. Telemetry reviewed patient in sinus rhythm heart rate 50-60. Blood pressure 124/58, afebrile, maintaining saturations on room air. She is currently maintained on Eliquis 5 mg twice a day, flecainide 50 mg twice a day, metoprolol titrate 50 mg twice a day. PHYSICAL EXAMINATION CONSTITUTIONAL: No apparent distress. HEENT: Head is normocephalic. Neck Supple No JVD. CHEST EXAMINATION: Lungs are clear to auscultation. No chest wall tenderness is noted on palpation or with deep breathing. HEART EXAMINATION: Regular rate and rhythm. S1, S2 heard. No murmurs, gallops or rub. ABDOMEN: Soft, nontender. Positive bowel sounds. EXTREMITIES: 2+ peripheral pulses, no lower extremity edema and no calf tenderness. NEUROLOGIC EXAMINATION: Patient is awake, alert and oriented x3. ASSESSMENT Typical Atrial Flutter, new onset -[id number] score 2 Hypothyroidism PLAN -For Rate Control metoprolol tartrate 50mg BID and start flecainide 50mg BID -Anticoagulation continue Eliquis 5mg BID, Case management consulted, patient does have a free month of Eliquis. Patient states she spoke with her insurance and has a copay around $120 per month. She states she is able to afford this medication. Patient given printed prescription for Eliquis and all other medication sent to her pharmacy. -From a cardiology perspective, patient is stable to be discharged home. Patient will be in town for about 1 more week. Recommend follow up with Dr. Romano prior to going back to [place]. Patient states she does have a volcanology teacher in [place] that she can follow up with. Nurse Practitioner note has been reviewed, I agree with a documented findings and plan of care. Patient was seen and examined. Objective - Vital Signs Vital signs: Vital Signs Temp 97.6 F 04/12/21 07:57 Pulse 68 04/12/21 08:00 Resp 16 04/12/21 08:00 BP 153/80 04/12/21 07:57 Pulse Ox 98 04/12/21 07:57 Intake & Output 04/11/21 04/12/21 04/12/21 18:59 06:59 18:59 Intake Total 667.021 540 Balance 667.021 540 Intake: Intake, IV Titration 427.021 Amount Diltiazem 125 mg In 95.333 Sodium Chloride 0.9% 100 ml @ 5 MG/HR 5 mls/hr IV .Q24H [facility] Rx#:[id number] Diltiazem 125 mg In 85.625 Sodium Chloride 0.9% 100 ml @ 5 MG/HR 5 mls/hr IV .Q24H [facility] Rx#:[id number] Heparin Sod,Pork in 0.45% 246.063 NaCl 25,000 unit In 0.45 % NaCl 1 250ml.bag @ 12 UNITS/KG/HR 9.525 mls/hr IV .Q24H [facility] Rx#: [id number] Oral 240 540 Other: Voiding Method Toilet Toilet # Voids 2 1 - Labs CBC & Chem 7: 04/12/21 06:11 04/12/21 06:11 Labs: Abnormal Lab Results - Last 24 Hours (Table) 07/28/21 Range/Units 06:11 Chloride 108 H (98-107) mmol/L BUN 23 H (7-17) mg/dL
[2021-04-12 12:19] VITALS: BP 144/68; PULSE 60
--- NOTE | 2021-04-12 12:43 | P.DS ---
Providers Date of admission: 04/10/21 11:34 Expected date of discharge: 04/12/21 Attending physician: Martina Ducnan DO Consults: 04/10/21 11:36 Consult Physician Urgent Consulting Provider: Ziggy Orr Consult Reason/Comments: Atrial flutter Do you want consulting provider notified?: Yes Primary care physician: Physician Nonstaff Hospital Course: Atrial fibrillation with RVR Hypothyroidism Patient is a 70-year-old female with past medical history of hypothyroidism presented to the emergency department with a chief complaint of palpitations. Patient seen and fully evaluated at bedside in the emergency department and reports that she began experiencing intermittent episodes of palpitations accompanied by a tightness in her throat and dizziness on and off over the past few days. An EKG was completed revealing atrial fibrillation with a rapid ventricular response at 157 bpm. Labs were drawn with CBC, Coags, CMP, and trop onin all unremarkable showing no abnormalities. Patient was started on Cardizem infusion for rate control a along with anticoagulation for heparin admitted under our services with consultation to cardiology. Cardizem infusion was discontinued and pt started on Flecainide by cardiology as well as metoprolol dose adjusted. Pt had stable HRs in NSR on day of discharge with intermittent PACs. No further symptomatic episodes. She will f/u with cardiology for further medication titration. Notably, she also had low TSH with normal FT4 in setting of synthroid tx for hypothyroidism; Synthroid decreased to 50mcg. I spent 32 minutes coordinating this discharge. Assessment: Gen: awake, alert HEENT: normocephalic, atraumatic, good hearing acuity, moist mucous membranes Resp: good air exchange, breathing comfortably with no accessory muscle use, CTAB CVS: good distal perfusion x 4, RRR, no murmurs GI: soft, NTTP, ND : no SPT, no CVAT, lema catheter not present MSK: no pitting edema, no clubbing Neuro: non-focal, moving all extremities Psych: cooperative, euthymic mood Patient Condition at Discharge: Good Plan - Discharge Summary Discharge Rx Participant: Yes New Discharge Prescriptions: New Levothyroxine Sodium [Synthroid] 50 mcg PO DAILY@0630 60 Days #30 tab Metoprolol Tartrate [Lopressor] 50 mg PO BID 90 Days #180 tab Flecainide [Tambocor] 50 mg PO Q12HR 90 Days #180 tab Apixaban [Eliquis] 5 mg PO BID 30 Days #60 tab Discontinued Levothyroxine Sodium 88 mcg PO DAILY Discharge Medication List Flecainide [Tambocor] 50 mg PO Q12HR 90 Days #180 tab 04/11/21 [Rx] Levothyroxine Sodium [Synthroid] 50 mcg PO DAILY@0630 60 Days #30 tab 04/11/21 [Rx] Metoprolol Tartrate [Lopressor] 50 mg PO BID 90 Days #180 tab 04/11/21 [Rx] Apixaban [Eliquis] 5 mg PO BID 30 Days #60 tab 04/12/21 [Rx] Follow up Appointment(s)/Referral(s): Axel Romano DO [STAFF PHYSICIAN] - 1 Week Nonstaff,Physician [Primary Care Provider] - 1-2 days Patient Instructions/Handouts: A-fib (Atrial Fibrillation) (ED) Activity/Diet/Wound Care/Special Instructions: Activity: As tolerated Diet: Heart healthy diet. Special Instructions: You are being discharged home on a blood thinner, Eliquis. This is very important to take daily as directed until otherwise advised by your rn progressive care unit. Being that you are being placed on a blood thinner it is very important to watch for any signs of bleeding and notify your doctor immediately if you notice any bleeding or large bruising. It is also important to remove any trip hazards such as rugs or loose extension cords from your home to prevent unnecessary falls/injuries. If you do experience a fall or head injury, it is extremely important to be evaluated by a medical provider immediately to ensure there is no internal bleeding. Your thyroid function was a little higher than we would like for it to be, for that reason your dose of synthroid was changed and reduced down to 50 mcg daily. You will need to follow up with your PCP/seed core operator in 6-8 weeks to have repeat testing for your thyroid function to ensure an appropriate dose is achieved to provide therapeutic level. Discharge Disposition: HOME SELF-CARE
== END 2021-04-12 13:31 | disposition home or self-care (01) | DRG 310 ==
LOC: EC 09:21 → 3SCARD 11:34 → UNDODISIN 14:53
PROVIDERS: ADMIT Internal Medicine; ATTEND Internal Medicine
DX: I48.91 Unspecified atrial fibrillation (principal); I48.3 Typical atrial flutter; I49.1 Atrial premature depolarization; Z79.01 Long term (current) use of anticoagulants; Z79.890 Hormone replacement therapy; Z79.899 Other long term (current) drug therapy; Z80.1 Family history of malignant neoplasm of trachea, bronchus and lung; Z82.49 Family history of ischemic heart disease and other diseases of the circulatory system; Z82.5 Family history of asthma and other chronic lower respiratory diseases; Z87.891 Personal history of nicotine dependence; Z90.710 Acquired absence of both cervix and uterus; G89.29 Other chronic pain; E03.9 Hypothyroidism, unspecified; I34.0 Nonrheumatic mitral (valve) insufficiency
CPT/HCPCS: 36415; 71046; 80048; 80053; 83735; 84439; 84443; 84484; 85025; 85027; 85610; 85730; 93005; 93306; 96374; 96375; 99291

== ENCOUNTER 2021-04-21 00:36 | Inpatient (IN) | payer MEDICARE, OTHER ==
[2021-04-21 01:39] LABS: Basophils # (A) 0.1 k/uL (0-0.2); Basophils % (A) 1 %; Eosinophils # (A) 0.3 k/uL (0-0.7); Eosinophils % (A) 3 %; HCT 43.2 % (34.0-46.0); HGB 14.2 gm/dL (11.4-16.0); Lymphocytes % (A) 27 %; MCH 30.5 pg (25.0-35.0); MCHC 32.9 g/dL (31.0-37.0); MCV 92.9 fL (80.0-100.0); Monocytes # (A) 0.3 k/uL (0-1.0); Monocytes % (A) 3 %; Neutrophils # (A) 7.2 k/uL (1.3-7.7); Neutrophils % (A) 65 %; Platelet Count 327 k/uL (150-450); RBC 4.65 m/uL (3.80-5.40); RDW 14.4 % (11.5-15.5); WBC 11.1 k/uL (3.8-10.6)
[2021-04-21 01:48] LABS: Albumin 4.4 g/dL (3.5-5.0); Calcium 9.7 mg/dL (8.4-10.2); Magnesium 2.1 mg/dL (1.6-2.3); Potassium 4.3 mmol/L (3.5-5.1); Total Bilirubin 0.2 mg/dL (0.2-1.3); Total Protein 7.3 g/dL (6.3-8.2)
--- NOTE | 2021-04-21 01:49 | XR ---
EXAMINATION TYPE: XR chest 2V DATE OF EXAM: 04/21/2021 COMPARISON: 04/10/2021 HISTORY: Elevated heart rate TECHNIQUE: 2 views FINDINGS: There is some pulmonary interstitial edema. There is slight blunting of the costophrenic an gles. There is fluid in the fissures. There are chest leads. IMPRESSION: Small pleural effusions and pulmonary interstitial edema could be acute congestive heart failure. This appears new compared to old exam.
[2021-04-21 01:51] LABS: Prothrombin Time 10.5 sec (9.0-12.0)
[2021-04-21] MEDS ORDERED: FUROSEMIDE 10 MG/ML 4 ML VIAL IV STA (02:25)
[2021-04-21] MEDS ORDERED: NITROGLYCERIN OINT 1 INCH/GM PACKET TOPICAL STA (02:28)
[2021-04-21] MEDS ORDERED: NITROGLYCERIN SL TABS 0.4 MG TAB SUBLINGUAL STA ×2 (02:30→02:56)
[2021-04-21] MEDS ORDERED: NALOXONE 0.4 MG/ML 1 ML VIAL IV PRN (02:32)
--- NOTE | 2021-04-21 02:32 | ED ---
SOB HPI - General Chief Complaint: Shortness of Breath Stated Complaint: JACKSON Time Seen by Provider: 04/21/21 01:02 Source: patient Mode of arrival: ambulatory - History of Present Illness Initial Comments: 70 year-old female patient presents to the emergency department for evaluation of shortness of breath that started when she laid down to go to bed this evening. States that she also developed a dry cough. States she's been having some right shoulder discomfort for the last couple of days. Denies any chest pain, nausea, vomiting, abdominal pain. States she is having increased swelling to the lower extremities. Denies history of heart failure swelling. Was admitted to the hospital 2 weeks ago for "atrial flutter". Was started on flecainide. Patient denies any recent rash, fever, chills, diarrhea, constipation, back pain, numbness, tingling, dizziness, weakness, hematuria, dysuria, urinary urgency, urinary frequency, headache, visual changes, or any other complaints. - Related Data Previous Rx's Medication Instructions Recorded Flecainide [Tambocor] 50 mg PO Q12HR 90 Days #180 tab 04/11/21 Levothyroxine Sodium [Synthroid] 50 mcg PO DAILY@0630 60 Days #30 04/11/21 tab Metoprolol Tartrate [Lopressor] 50 mg PO BID 90 Days #180 tab 04/11/21 Apixaban [Eliquis] 5 mg PO BID 30 Days #60 tab 04/12/21 Allergies Allergy/AdvReac Type Severity Reaction Status Date / Time No Known Allergies Allergy Verified 04/21/21 00:40 Review of Systems ROS Statement: Those systems with pertinent positive or pertinent negative responses have been documented in the HPI. ROS Other: All systems not noted in ROS Statement are negative. Past Medical History Past Medical History: Thyroid Disorder Additional Past Medical History / Comment(s): mitral valve regurgitation History of Any Multi-Drug Resistant Organisms: None Reported Past Surgical History: Hysterectomy, Orthopedic Surgery Additional Past Surgical History / Comment(s): hip surgery Past Anesthesia/Blood Transfusion Reactions: Previous Problems w/ Anesthesia Additional Past Anesthesia/Blood Transfusion Reaction / Comment(s): hard to wake up Past Psychological History: No Psychological Hx Reported Smoking Status: Never smoker Past Alcohol Use History: Occasional Past Drug Use History: None Reported - Past Family History Father Family Medical History: Cancer Additional Family Medical History / Comment(s): lung cancer, ETOH Mother Family Medical History: COPD Sister(s) Family Medical History: Cancer, Hypertension General Exam General appearance: alert, in no apparent distress, other (Physical well- developed, well-nourished adult female patient in no acute distress. Vital signs upon presentation are temperature 98.0F, pulse 66, respirations 18, blood pressure 196/86, pulse ox 95% on room air.) ENT exam: Present: normal exam, normal oropharynx, mucous membranes moist Respiratory exam: Present: normal lung sounds bilaterally. Absent: respiratory distress, wheezes, rales, rhonchi, stridor Cardiovascular Exam: Present: regular rate, normal rhythm, normal heart sounds. Absent: systolic murmur, diastolic murmur, rubs, gallop, clicks GI/Abdominal exam: Present: soft, normal bowel sounds. Absent: distended, tenderness, guarding, rebound, rigid Extremities exam: Present: full ROM, normal capillary refill, other (2+ pitting edema noted to the bilateral lower legs and feet.). Absent: tenderness, pedal edema, joint swelling, calf tenderness Neurological exam: Present: alert, oriented X3, CN II-XII intact Psychiatric exam: Present: normal affect, normal mood Skin exam: Present: warm, dry, intact, normal color. Absent: rash Course Vital Signs 04/21/21 04/21/21 04/21/21 00:37 01:58 02:35 Temperature 98 F Pulse Rate 66 67 74 Respiratory 18 18 16 Rate Blood Pressure 196/86 166/86 155/99 O2 Sat by Pulse 95 96 94 L Oximetry 04/21/21 04/21/21 02:53 03:06 Temperature Pulse Rate 61 Respiratory 20 Rate Blood Pressure 171/97 150/86 O2 Sat by Pulse 88 L Oximetry Medical Decision Making - Medical Decision Making 70-year-old female patient presented for evaluation of shortness of breath and lower extremity edema. She also reported some right posterior shoulder pain. Labs reviewed and did reveal mildly elevated liver enzymes. BNP was around 300. D-dimer was 0.62 which is not concerning due to her age. Chest xray showed evidence of pulmonary edema and interstitial edema. While here patient developed acute respiratory distress, BP elevated, Oxygen saturation decreased to 80% on 4L nasal cannula. She was given IV lasix, nitro sublingual, nitro paste, and put on non-rebreather. Bipap was ordered but patient started vomiting. Patient did start to feel better. Oxygen saturation improved. She will be admitted for pulmonary edema possible heart failure. She is agreeable with this plan. Case discussed with my attending Dr. Vuong who was also in to evaluate the patient. - Lab Data Result diagrams: 04/21/21 01:17 04/21/21 01:17 Lab Results 04/21/21 04/21/21 04/21/21 Range/Units 01:17 01:17 01:17 WBC 11.1 H (3.8-10.6) k/uL RBC 4.65 (3.80-5.40) m/uL Hgb 14.2 (11.4-16.0) gm/dL Hct 43.2 (34.0-46.0) % MCV 92.9 (80.0-100.0) fL MCH 30.5 (25.0-35.0) pg MCHC 32.9 (31.0-37.0) g/dL RDW 14.4 (11.5-15.5) % Plt Count 327 (150-450) k/uL MPV 9.0 Neutrophils % 65 % Lymphocytes % 27 % Monocytes % 3 % Eosinophils % 3 % Basophils % 1 % Neutrophils # 7.2 (1.3-7.7) k/uL Lymphocytes # 3.0 (1.0-4.8) k/uL Monocytes # 0.3 (0-1.0) k/uL Eosinophils # 0.3 (0-0.7) k/uL Basophils # 0.1 (0-0.2) k/uL PT 10.5 (9.0-12.0) sec INR 1.0 (<1.2) APTT 24.0 (22.0-30.0) sec D-Dimer 0.62 H (<0.60) mg/L FEU Sodium 139 (137-145) mmol/L Potassium 4.3 (3.5-5.1) mmol/L Chloride 108 H (98-107) mmol/L Carbon Dioxide 23 (22-30) mmol/L Anion Gap 8 mmol/L BUN 12 (7-17) mg/dL Creatinine 0.88 (0.52-1.04) mg/dL Est GFR (CKD-EPI)AfAm 78 (>60 ml/min/1.73 sqM) Est GFR (CKD-EPI)NonAf 68 (>60 ml/min/1.73 sqM) Glucose 123 H (74-99) mg/dL Plasma Lactic Acid Sami (0.7-2.0) mmol/L Calcium 9.7 (8.4-10.2) mg/dL Magnesium 2.1 (1.6-2.3) mg/dL Total Bilirubin 0.2 (0.2-1.3) mg/dL AST 100 H (14-36) U/L ALT 147 H (4-34) U/L Alkaline Phosphatase 131 H (38-126) U/L Troponin I (0.000-0.034) ng/mL NT-Pro-B Natriuret Pep pg/mL Total Protein 7.3 (6.3-8.2) g/dL Albumin 4.4 (3.5-5.0) g/dL 04/21/21 04/21/21 04/21/21 Range/Units 01:17 01:17 01:17 WBC (3.8-10.6) k/uL RBC (3.80-5.40) m/uL Hgb (11.4-16.0) gm/dL Hct (34.0-46.0) % MCV (80.0-100.0) fL MCH (25.0-35.0) pg MCHC (31.0-37.0) g/dL RDW (11.5-15.5) % Plt Count (150-450) k/uL MPV Neutrophils % % Lymphocytes % % Monocytes % % Eosinophils % % Basophils % % Neutrophils # (1.3-7.7) k/uL Lymphocytes # (1.0-4.8) k/uL Monocytes # (0-1.0) k/uL Eosinophils # (0-0.7) k/uL Basophils # (0-0.2) k/uL PT (9.0-12.0) sec INR (<1.2) APTT (22.0-30.0) sec D-Dimer (<0.60) mg/L FEU Sodium (137-145) mmol/L Potassium (3.5-5.1) mmol/L Chloride (98-107) mmol/L Carbon Dioxide (22-30) mmol/L Anion Gap mmol/L BUN (7-17) mg/dL Creatinine (0.52-1.04) mg/dL Est GFR (CKD-EPI)AfAm (>60 ml/min/1.73 sqM) Est GFR (CKD-EPI)NonAf (>60 ml/min/1.73 sqM) Glucose (74-99) mg/dL Plasma Lactic Acid Sami 1.1 (0.7-2.0) mmol/L Calcium (8.4-10.2) mg/dL Magnesium (1.6-2.3) mg/dL Total Bilirubin (0.2-1.3) mg/dL AST (14-36) U/L ALT (4-34) U/L Alkaline Phosphatase (38-126) U/L Troponin I <0.012 (0.000-0.034) ng/mL NT-Pro-B Natriuret Pep 388 pg/mL Total Protein (6.3-8.2) g/dL Albumin (3.5-5.0) g/dL - EKG Data -: EKG Interpreted by Sc EKG Comments: EKG obtained at 0114 shows normal sinus rhythm with a ventricular rate of 74, MA interval 192, QRS duration 104, QT 386, QTC 428. - Radiology Data Radiology results: report reviewed, image reviewed Two-view x-ray of the chest is obtained. Report is reviewed in its entirety. Impression by Dr. Capps shows small pleural effusions and pulmonary interstitial edema could be acute congestive heart failure. This appears new compared to old exam. Disposition Clinical Impression: Pulmonary edema Disposition: ADMITTED IP TO THIS HOSP Condition: Serious Decision to Admit Reason: Admit from EC Decision Date: 04/21/21 Decision Time: 02:32
[2021-04-21] MEDS ORDERED: ONDANSETRON 4 MG/2 ML VIAL IVP STA (02:47)
[2021-04-21] MEDS ORDERED: MORPHINE SULFATE 4 MG/ML SYRINGE IVP STA (02:56)
[2021-04-21] MEDS ORDERED: ONDANSETRON 4 MG/2 ML VIAL IVP PRN (06:32)
[2021-04-21] MEDS ORDERED: METOCLOPRAMIDE 5 MG/ML 2 ML VIAL IVP PRN (08:28)
[2021-04-21] MEDS ORDERED: KETOROLAC 15 MG/ML 1 ML VIAL IVP PRN (08:29)
[2021-04-21] MEDS: METOPROLOL TARTRATE 25 MG TAB PO SCH ×2 (08:59→20:20)
[2021-04-21] MEDS ORDERED: FLECAINIDE 50 MG TAB PO SCH (09:00)
[2021-04-21] MEDS ORDERED: APIXABAN 5 MG TAB PO SCH (09:00)
[2021-04-21] MEDS: LEVOTHYROXINE 88 MCG TAB PO SCH (09:01)
[2021-04-21] MEDS: FUROSEMIDE 10 MG/ML 4 ML VIAL IV SCH ×2 (09:02→20:20)
[2021-04-21] MEDS ORDERED: POTASSIUM CHLORIDE ER 20 MEQ TAB.ER PO STA (10:27)
--- NOTE | 2021-04-21 11:39 | P.HPIM ---
History of Present Illness Patient is a pleasant 70-year-old the female came in with compensative shortness of breath orthopnea and possible proximal nocturnal dyspnea which started yesterday. Patient also comparing of dry cough. Patient was complaining of p ain in between the shoulder blades still has her gallbladder. Patient was recently hospitalized and subsequently was discharged after she was treated for atrial fibrillation at the time patient the came in with chest pain at this time patient denied any chest pain. Patient is found to be in congestive heart failure with pulmonary edema and patient was started on IV Lasix. Patient is on metoprolol dose of which has been cut down recently because of side effects. Patient is also on Eliquis and flecainide. Flecainide was discontinued. Echo cardiac exam was obtained while at echocardiogram is being done I was present at bedside it appears patient may have decreased EF of around 40-45% with possible anti-wall motion abnormalities and a preferred cardiology patient may end up needing cardiac catheterization. Because of her shoulder blade pain ultrasound of the gallbladder is being obtained as well. REVIEW OF SYSTEMS: CONSTITUTIONAL: No fever, no malaise, no fatigue. HEENT: No recent visual problems or hearing problems. Denied any sore throat. CARDIOVASCULAR: As mentioned in HPI PULMONARY: No shortness of breath, no cough, no hemoptysis. GASTROINTESTINAL: No diarrhea, no nausea, no vomiting, no abdominal pain. NEUROLOGICAL: No headaches, no weakness, no numbness. HEMATOLOGICAL: Denies any bleeding or petechiae. GENITOURINARY: Denies any burning micturition, frequency, or urgency. MUSCULOSKELETAL/RHEUMATOLOGICAL: Denies any joint pain, swelling, or any muscle pain. ENDOCRINE: Denies any polyuria or polydipsia. The rest of the 14-point review of systems is negative. PHYSICAL EXAMINATION: GENERAL: The patient is alert and oriented x3, not in any acute distress. Well developed, well nourished. HEENT: Pupils are round and equally reacting to light. EOMI. No scleral icterus. No conjunctival pallor. Normocephalic, atraumatic. No pharyngeal erythema. No t hyromegaly. CARDIOVASCULAR: S1 and S2 present. No murmurs, rubs, or gallops. PULMONARY: Bibasilar crackles no wheezing was appreciated. ABDOMEN: Soft, nontender, nondistended, normoactive bowel sounds. No palpable organomegaly. MUSCULOSKELETAL: No joint swelling or deformity. EXTREMITIES: No cyanosis, clubbing, patient apparently had pedal edema which improved NEUROLOGICAL: Gross neurological examination did not reveal any focal deficits. SKIN: No rashes. Assessment and plan - congestive heart failure new-onset acute systolic dysfunction with acute exacerbation patient is on IV Lasix will be continued, patient does have almost abnormalities cardiology was notified possibly end up needing a cardiac catheterization, continue with metoprolol -Hypothyroidism -Shoulder blade pain ultrasound of the gallbladder -History of atrial fibrillation for which patient is on anticoagulation, which is being continued at this time DVT prophylaxis: Past Medical History Past Medical History: Thyroid Disorder Additional Past Medical History / Comment(s): mitral valve regurgitation History of Any Multi-Drug Resistant Organisms: None Reported Past Surgical History: Hysterectomy, Orthopedic Surgery Additional Past Surgical History / Comment(s): hip surgery Past Anesthesia/Blood Transfusion Reactions: Previous Problems w/ Anesthesia Additional Past Anesthesia/Blood Transfusion Reaction / Comment(s): hard to wake up Past Psychological History: No Psychological Hx Reported Smoking Status: Never smoker Past Alcohol Use History: Occasional Past Drug Use History: None Reported - Past Family History Father Family Medical History: Cancer Additional Family Medical History / Comment(s): lung cancer, ETOH Mother Family Medical History: COPD Sister(s) Family Medical History: Cancer, Hypertension Medications and Allergies Home Medications Medication Instructions Recorded Confirmed Type Flecainide [Tambocor] 50 mg PO Q12HR 90 Days #180 tab 04/11/21 04/21/21 Rx Apixaban [Eliquis] 5 mg PO BID 30 Days #60 tab 04/12/21 04/21/21 Rx Levothyroxine Sodium [Synthroid] 88 mcg PO DAILY 04/21/21 04/21/21 History Metoprolol Tartrate [Lopressor] 25 mg PO BID 04/21/21 04/21/21 History Allergies Allergy/AdvReac Type Severity Reaction Status Date / Time No Known Allergies Allergy Verified 04/21/21 06:38 Physical Exam Vitals: Vital Signs Temp Pulse Resp BP BP Pulse Ox 04/21/21 08:00 98 F 16 141/75 98 04/21/21 07:33 63 18 154/78 96 04/21/21 06:00 57 L 18 142/72 94 L 04/21/21 05:00 52 L 22 138/76 98 04/21/21 04:00 51 L 20 132/73 97 04/21/21 03:45 54 L 20 144/80 96 04/21/21 03:06 150/86 04/21/21 02:53 61 20 171/97 88 L 04/21/21 02:35 74 16 155/99 94 L 04/21/21 01:58 67 18 166/86 96 04/21/21 00:37 98 F 66 18 196/86 95 Intake and Output 04/20/21 04/21/21 04/21/21 22:59 06:59 14:59 Other: Voiding Method Toilet # Voids 1 # Bowel Movements 1 Weight 79.379 kg Results CBC & Chem 7: 04/21/21 01:17 04/21/21 01:17 Labs: Abnormal Lab Results - Last 24 Hours (Table) 04/21/21 04/21/21 04/21/21 Range/Units 01:17 01:17 01:17 WBC 11.1 H (3.8-10.6) k/uL D-Dimer 0.62 H (<0.60) mg/L FEU Chloride 108 H (98-107) mmol/L Glucose 123 H (74-99) mg/dL AST 100 H (14-36) U/L ALT 147 H (4-34) U/L Alkaline Phosphatase 131 H (38-126) U/L Troponin I (0.000-0.034) ng/mL 04/21/21 04/21/21 Range/Units 04:48 07:50 WBC (3.8-10.6) k/uL D-Dimer (<0.60) mg/L FEU Chloride (98-107) mmol/L Glucose (74-99) mg/dL AST (14-36) U/L ALT (4-34) U/L Alkaline Phosphatase (38-126) U/L Troponin I 0.161 H* 0.271 H* (0.000-0.034) ng/mL
[2021-04-21] MEDS ORDERED: ATORVASTATIN 80 MG TAB PO STA (12:09)
[2021-04-21] MEDS ORDERED: ALPRAZolam 0.5 MG TAB PO PRN (12:09)
[2021-04-21] MEDS ORDERED: ALPRAZolam 0.25 MG TAB PO PRN (12:09)
[2021-04-21] MEDS ORDERED: ASPIRIN 325 MG TAB PO STA (12:09)
[2021-04-21] MEDS ORDERED: SODIUM CHLORIDE 0.9% 1,000 ML in EMPTY BAG 1 BAG IV ONE (12:09)
[2021-04-21] MEDS ORDERED: LIDOCAINE 1% INJ 10MG/ML (20 ML MDV) ONE (12:18)
[2021-04-21] MEDS ORDERED: VERAPAMIL 2.5 MG/ML 2 ML AMP ONE (12:18)
[2021-04-21] MEDS ORDERED: HEPARIN SODIUM 1,000 UN/ML (10ML VL) ONE (12:19)
[2021-04-21] MEDS ORDERED: fentaNYL (PF) 50 MCG/ML 2 ML AMP ONE (12:19)
--- NOTE | 2021-04-21 12:24 | P.CRDCN ---
History of Present Illness History of present illness: HISTORY OF PRESENTING ILLNESS This is a pleasant 70-year-old female past medical history significant for hypothyroidism, paroxysmal typical atrial flutter. She has followed up once with Dr. Romano. She states she has seen a sizing end bander before in [place]. She is from [place] and is here on vacation here, suppose to go back home on Saturday. We have been asked to see in consultation for pulmonary edema. She presents to the emergency department with worsening shortness of breath that started Saturday. She states she hasnt been at 100% yet since her hospitalization a few weeks ago. She states 2 days ago she noticed her shortness of breath when she laid down to go to bed yesterday evening. States that she also developed a dry cough. She also endorses some mild dysnea on exertion. She denies waking up short of breath. She denies fever, chills, chest pain, nausea, diaphoresis, lightheadedness dizziness, palpiations, pre syncope or syncope. She does have right sided neck/shoulder pain, that feels like a "knot" it is improved with massaging. She did get IV morphine and felt nauseous after that. She states in the past year she has seen a sizing end bander in [place], she has been told she has occasional extra beats, she also had an echocardiogram and was told it was normal and that she has mild mitral regurgitation, she has had stress tests in the past which she was told were normal. She denies history of hypertension, diabetes, stroke, [place], hyperlipidemia. She denies family history of heart disease. She occasionally drinks alcohol about 3 glasses a wine a week and denies tobacco use. Patient started on IV Lasix 40mg BID. She has significant improvement in lower extremity edema Patient recently presented to the hospital on 04/11/21 with a chief complaint of palpitations. EKG on admission revealed atrial flutter 2:1 conduction HR 150s. Patient received 125 mg Cardizem bolus and started on a Cardizem drip at 15mg/hr weaned to 7.5mg/hr this morning. Patient converted back to sinus rhythm with premature atrial complexes currently HR 60-90s. She was started on Eliquis 5mg BID, Flecainide 50mg BID, and metoprolol tartrate 50mg BID. 2D echocardiogram was obtained and revealed EF 55-60%, mild mitral regurgitation. She did follow up with Dr. Romano outpatient, at that time patient did not feel 100%, her metoprolol was decreased to 25mg BID. DIAGNOSTICS: EKG this morning sinus bradycardia HR 51, non-specific ST-T wave abnormalities Telemetry reviewed- patient in sinus mechanism HR 45-60s Chest Xray- new small bilateral pleural effusions and pulmonary interstitial edema. Laboratory data reviewed- initial troponin negative, 0.16, 0.27, sodium 139, potassium 4.6, BUN 12, Synthroid 0.88, AST 100, ALD 147, alkaline phosphatase 137 WBC 11.1, platelets 327, hemoglobin 14.2 REVIEW OF SYSTEMS At the time of my exam: CONSTITUTIONAL: Denies fever or chills. CARDIOVASCULAR: +shortness of breath +orthopnea Denies chest pain, shortness of breath, PND RESPIRATORY: +cough. GASTROINTESTINAL: Denies abdominal pain, diarrhea, constipation, nausea or vo miting. MUSCULOSKELETAL: Denies myalgias. NEUROLOGIC: Denies numbness, tingling, headacbe or weakness. ENDOCRINE: Denies fatigue, weight change, polydipsia or polyurina. GENITOURINARY: Denies burning, hematuria or urgency with micturation. HEMATOLOGIC: Denies history of anemia or bleeding. PHYSICAL EXAMINATION Blood pressure 141/75, heart rate 63, afebrile, maintaining oxygen saturations 89% on 4 L nasal cannula. CONSTITUTIONAL: No apparent distress. HEENT: Head is normocephalic. Pupils are equal, round. Sclerae anicteric. Mucous membranes of the mouth are moist. No JVD. No carotid bruit. CHEST EXAMINATION: Lungs with bilateral crackles in the bases. No chest wall tenderness is noted on palpation or with deep breathing. HEART EXAMINATION: Regular rate and rhythm. S1, S2 heard. No murmurs, gallops or rub. ABDOMEN: Soft, nontender. Positive bowel sounds. EXTREMITIES: 2+ peripheral pulses, mild non pitting bilateral lower extremity edema and no calf tenderness. SKIN: intact NEUROLOGIC EXAMINATION: Patient is awake, alert and oriented x3. ASSESSMENT Shortness of breath Cough Acute systolic congestive heart failure Elevated troponin Typical Atrial Flutter,recent diagnosis in March [id number] score 2- currently maintaining sinus mechanism Hypothyroidism Elevated liver enzymes PLAN Echocardiogram obtained and reviewed, patient with EF 40-45%, moderate MR, basal anterior wall is hypokinetic. Unclear etiology at this time. We would like to rule out ischemic cardiomyopathy and recommend cardiac catheterization at this time. Plan for cardiac catheterization with Dr. Carlson tomorrow I have discussed the risks, benefits and alternative therapies for the above- mentioned procedure and for both sedation/analgesia as well as necessary blood product administration, if indicated, as they pertain to this patient. The patient has indicated understanding and acceptance of the risks and procedures discussed. Questions have been answered appropriately and he is agreeable to move forward with the above-stated procedure. Patient and updated on plan. Continue IV Lasix 40mg BID, metoprolol tartrate 25mg BID We will hold Eliquis Stop Flecainide at this time Trend liver enzymes Monitor renal function and electrolytes Further recommendations based on clinical course Nurse Practitioner note has been reviewed, I agree with a documented findings and plan of care. Patient was seen and examined. Past Medical History Past Medical History: Thyroid Disorder Additional Past Medical History / Comment(s): mitral valve regurgitation History of Any Multi-Drug Resistant Organisms: None Reported Past Surgical History: Hysterectomy, Orthopedic Surgery Additional Past Surgical History / Comment(s): hip surgery Past Anesthesia/Blood Transfusion Reactions: Previous Problems w/ Anesthesia Additional Past Anesthesia/Blood Transfusion Reaction / Comment(s): hard to wake up Past Psychological History: No Psychological Hx Reported Smoking Status: Never smoker Past Alcohol Use History: Occasional Past Drug Use History: None Reported - Past Family History Father Family Medical History: Cancer Additional Family Medical History / Comment(s): lung cancer, ETOH Mother Family Medical History: COPD Sister(s) Family Medical History: Cancer, Hypertension Medications and Allergies Home Medications Medication Instructions Recorded Confirmed Type Flecainide [Tambocor] 50 mg PO Q12HR 90 Days #180 tab 04/11/21 04/21/21 Rx Apixaban [Eliquis] 5 mg PO BID 30 Days #60 tab 04/12/21 04/21/21 Rx Levothyroxine Sodium [Synthroid] 88 mcg PO DAILY 04/21/21 04/21/21 History Metoprolol Tartrate [Lopressor] 25 mg PO BID 04/21/21 04/21/21 History Allergies Allergy/AdvReac Type Severity Reaction Status Date / Time No Known Allergies Allergy Verified 04/21/21 06:38 Physical Exam Vitals: Vital Signs Temp Pulse Resp BP Pulse Ox 04/21/21 07:33 63 18 154/78 96 04/21/21 06:00 57 L 18 142/72 94 L 04/21/21 05:00 52 L 22 138/76 98 04/21/21 04:00 51 L 20 132/73 97 04/21/21 03:45 54 L 20 144/80 96 04/21/21 03:06 150/86 04/21/21 02:53 61 20 171/97 88 L 04/21/21 02:35 74 16 155/99 94 L 04/21/21 01:58 67 18 166/86 96 04/21/21 00:37 98 F 66 18 196/86 95 Intake and Output 04/20/21 04/21/21 04/21/21 22:59 06:59 14:59 Other: # Voids 1 # Bowel Movements 1 Weight 79.379 kg Results 04/21/21 01:17 04/21/21 01:17 Cardiac Enzymes 04/21/21 04/21/21 04/21/21 Range/Units 01:17 01:17 04:48 AST 100 H (14-36) U/L Troponin I <0.012 0.161 H* (0.000-0.034) ng/mL Coagulation 04/21/21 Range/Units 01:17 PT 10.5 (9.0-12.0) sec APTT 24.0 (22.0-30.0) sec CBC 04/21/21 Range/Units 01:17 WBC 11.1 H (3.8-10.6) k/uL RBC 4.65 (3.80-5.40) m/uL Hgb 14.2 (11.4-16.0) gm/dL Hct 43.2 (34.0-46.0) % Plt Count 327 (150-450) k/uL Comprehensive Metabolic Panel 04/21/21 Range/Units 01:17 Sodium 139 (137-145) mmol/L Potassium 4.3 (3.5-5.1) mmol/L Chloride 108 H (98-107) mmol/L Carbon Dioxide 23 (22-30) mmol/L BUN 12 (7-17) mg/dL Creatinine 0.88 (0.52-1.04) mg/dL Glucose 123 H (74-99) mg/dL Calcium 9.7 (8.4-10.2) mg/dL AST 100 H (14-36) U/L ALT 147 H (4-34) U/L Alkaline Phosphatase 131 H (38-126) U/L Total Protein 7.3 (6.3-8.2) g/dL Albumin 4.4 (3.5-5.0) g/dL Current Medications Generic Name Dose Route Start Last Admin Trade Name Freq PRN Reason Stop Dose Admin Furosemide 40 mg 04/21/21 09:00 Furosemide 10 Mg/Ml 4 Ml Vial IV Q12HR CHELSEA Naloxone HCl 0.2 mg 04/21/21 02:32 Naloxone 0.4 Mg/Ml 1 Ml Vial IV Q2M PRN Opioid Reversal Ondansetron HCl 4 mg 04/21/21 06:32 04/21/21 06:55 Ondansetron 4 Mg/2 Ml Vial IVP 4 mg Q6HR PRN Administration Nausea And Vomiting Intake and Output 04/20/21 04/21/21 04/21/21 22:59 06:59 14:59 Other: # Voids 1 # Bowel Movements 1 Weight 79.379 kg 04/21/21 01:17 04/21/21 01:17
--- NOTE | 2021-04-21 13:01 | ECHOF ---
Referral Reason:new shortness of breath LV function MEASUREMENTS -------- HEIGHT: 160.0 cm WEIGHT: 79.4 kg BP: 141/75 RAP: 5.00 mmHg RVSP: 39.12 mmHg FINDINGS -------- Sinus rhythm. Limited Study Overall left ventricular systolic function is mild-moderately impaired with, an EF between 40 - 45 %. Basal anterior LV wall motion is hypokinetic. Mid anterior LV wall motion is hypokinetic. There is mild aortic regurgitation. [id number] mitral regurgitation is present. Mild tricuspid regurgitation present. There is mild pulmonary hypertension. The right ventricular systolic pressure, as measured by Doppler, is 39.12mmHg. Trace/mild (physiologic) pulmonic regurgitation. There is no pericardial effusion. CONCLUSIONS -------- 1. Overall left ventricular systolic function is mild-moderately impaired with, an EF between 40 - 45 %. 2. Basal anterior LV wall motion is hypokinetic. 3. Mid anterior LV wall motion is hypokinetic. 4. There is mild aortic regurgitation. 5. Bumh-wc-vjknhmey mitral regurgitation is present. 6. Mild tricuspid regurgitation present. 7. There is mild pulmonary hypertension. 8. Trace/mild (physiologic) pulmonic regurgitation. 9. There is no pericardial effusion. WOOL FLEECE SORTER: Darby Camacho RDCS
[2021-04-21] MEDS ORDERED: HEPARIN SODIUM 1,000 UN/ML (10ML VL) IV PRN (13:16)
[2021-04-21] MEDS: HEPARIN SOD,PORK IN 0.45% NACL 25,000 UNIT in 0.45% NACL 1 250ML.BAG IV SCH (14:01)
--- NOTE | 2021-04-21 14:13 | US ---
EXAMINATION TYPE: US gallbladder DATE OF EXAM: 04/21/2021 COMPARISON: NONE CLINICAL HISTORY: elevated liver enzymes. In hospital for [facility]. EXAM MEASUREMENTS: Liver Length: 13.2 cm Gallbladder Wall: 0.2 cm CBD: 0.6 cm Right Kidney: 9.0 x 5.9 x 3.1 cm Pancreas: hyperechoic Liver: no masses seen Gallbladder: sludge and multiple shadowing stones seen within Evidence for sonographic Garcia's sign: no CBD: wnl Right Kidney: No hydronephrosis or masses seen SMall right pleural effusion is noted on images # [id number] and [id number]. IMPRESSION: 1. Cholelithiasis
[2021-04-22] MEDS: LEVOTHYROXINE 88 MCG TAB PO SCH (06:13)
[2021-04-22] MEDS ORDERED: HEPARIN SODIUM,PORCINE 10,000 UNIT in SODIUM CHLORIDE 0.9% 1,000 ML IRRIGATION PRN (07:00)
[2021-04-22] MEDS ORDERED: HEPARIN SODIUM,PORCINE 2,500 UNIT in SODIUM CHLORIDE 0.9% 250 ML IRRIGATION PRN (07:00)
[2021-04-22 07:42] LABS: Basophils # (A) 0.1 k/uL (0-0.2); Basophils % (A) 0 %; Eosinophils # (A) 0.1 k/uL (0-0.7); Eosinophils % (A) 1 %; HCT 44.1 % (34.0-46.0); HGB 14.3 gm/dL (11.4-16.0); Lymphocytes # (A) 2.6 k/uL (1.0-4.8); Lymphocytes % (A) 21 %; MCH 30.2 pg (25.0-35.0); MCHC 32.6 g/dL (31.0-37.0); MCV 92.8 fL (80.0-100.0); Mean Platelet Volume 8.6; Monocytes # (A) 0.5 k/uL (0-1.0); Monocytes % (A) 4 %; Neutrophils # (A) 9.2 k/uL (1.3-7.7); Neutrophils % (A) 74 %; Platelet Count 312 k/uL (150-450); RBC 4.75 m/uL (3.80-5.40); RDW 14.4 % (11.5-15.5); WBC 12.5 k/uL (3.8-10.6)
[2021-04-22 07:51] LABS: Albumin 4.3 g/dL (3.5-5.0); Calcium 9.5 mg/dL (8.4-10.2); Potassium 3.6 mmol/L (3.5-5.1); Total Bilirubin 0.5 mg/dL (0.2-1.3); Total Protein 7.3 g/dL (6.3-8.2)
[2021-04-22 08:03] LABS: INR 1.1 (<1.2); Partial Thromboplastin Time 63.4 sec (22.0-30.0); Prothrombin Time 11.5 sec (9.0-12.0)
[2021-04-22] MEDS: FUROSEMIDE 10 MG/ML 4 ML VIAL IV SCH ×2 (08:21→20:53)
[2021-04-22] MEDS: METOPROLOL TARTRATE 25 MG TAB PO SCH ×2 (09:24→20:53)
[2021-04-22] MEDS: HEPARIN SOD,PORK IN 0.45% NACL 25,000 UNIT in 0.45% NACL 1 250ML.BAG IV SCH ×2 (10:42→20:51)
[2021-04-22] MEDS ORDERED: SODIUM CHLORIDE 0.9% 1,000 ML IV ONE (10:50)
[2021-04-22] MEDS ORDERED: fentaNYL (PF) 50 MCG/ML 2 ML AMP ONE ×2 (10:52→12:00)
[2021-04-22] MEDS ORDERED: VERAPAMIL 2.5 MG/ML 2 ML AMP ONE (10:52)
[2021-04-22] MEDS ORDERED: HEPARIN SODIUM 1,000 UN/ML (10ML VL) ONE (10:52)
[2021-04-22] MEDS ORDERED: ASPIRIN 325 MG TAB ONE (10:52)
[2021-04-22] MEDS ORDERED: LIDOCAINE 1% INJ 10MG/ML (20 ML MDV) ONE (10:52)
[2021-04-22] MEDS ORDERED: ASPIRIN 325 MG TAB PO ONE (11:10)
[2021-04-22] MEDS ORDERED: MIDAZOLAM 2 MG/2 ML VIAL IV ONE ×2 (11:15→12:00)
[2021-04-22] MEDS ORDERED: fentaNYL (PF) 50 MCG/ML 2 ML AMP IV ONE ×2 (11:15→12:00)
[2021-04-22] MEDS ORDERED: LIDOCAINE 1% INJ 10MG/ML (20 ML MDV) SQ ONE (11:19)
[2021-04-22] MEDS ORDERED: VERAPAMIL SYRINGE (5 MG/10 ML) INTRAARTER ONE (11:21)
[2021-04-22] MEDS ORDERED: IOPAMIDOL-370 125ML BTL INJ ONE (11:35)
[2021-04-22] MEDS ORDERED: RX INFO: IV CONTRAST WAS GIVEN 1 EACH MISC MISCELLANE PRN (11:46)
[2021-04-22] MEDS ORDERED: BENZOCAINE SPRAY 1 CAN MUCOUS MEM ONE ×2 (11:57)
--- NOTE | 2021-04-22 11:59 | P.CARDCATH ---
Date of Procedure: 04/22/21 Preoperative Diagnosis: Congestive heart failure, wall motion abnormality on the echocardiogram. Mitral valve regurgitation Postoperative Diagnosis: Normal coronary arteries. Mitral valve prolapse and moderate mitral regurgitation Procedure(s) Performed: Left heart catheterization without left ventriculography Description of Procedure: HISTORY: [] CONSENT:I have discussed the risks, benefits and alternative therapies for the above-mentioned procedure and for both sedation/analgesia as well as necessary blood product administration, if indicated, as they pertain to this patient. The patient has indicated understanding and acceptance of the risks and procedures discussed. [] PROCEDURE: Patient was brought to the lab in a fasting state. Patient was given some IV sedation. The right wrist is infiltrated with lidocaine and right radial artery was entered using Seldinger technique. A 6-Greenlandic catheter was left in place and selective coronary arteriography and left ventriculography was performed. Patient tolerated the procedure well. TR band was applied for hemostasis No immediate complications were noted and patient was transferred to [facility] in a stable condition Conscious Sedation: Versed 1mg Fentanyl 25 g Duration 30minutes HEMODYNAMICS: The aortic pressure is 130/70. Left ventricle end-diastolic pressure was 20 before left ventriculography. He does gone up to 40 after the left ventriculography SELECTIVE CORONARY ARTERIOGRAPHY: LEFT MAIN: Normal. Divides immediately into LAD and also circumflex THE LEFT ANTERIOR DESCENDING CORONARY ARTERY: . Good caliber vessel giving rise good-sized diagonal branch ,the LAD and branches are free of occlusive disease THE LEFT CIRCUMFLEX AND IS CORONARY ARTERY: This is a good caliber vessel free of any occlusive disease THE RIGHT CORONARY ARTERY: . This is a dominant vessel giving rise to PDA and PLV. Free of any occlusive disease LEFT VENTRICULOGRAPHY: . This revealed normal-sized cardiac silhouette with good systolic function. There is an area of anterobasal segment which appears to be hypokinetic. There is evidence of mitral valve prolapse with moderate mitral regurgitation FINAL IMPRESSION: Normal coronary arteries. Mitral valve prolapse with moderate mitral regurgitation Elevated end-diastolic pressures size to diastolic dysfunction. Wall motion abnormalities with hypokinesis of the anterobasal segment, could be secondary to myocarditis, focal PLAN: Continued medical therapy. Further evaluation of the mitral regurgitation the VIRGEN PROGNOSIS: Guarded
[2021-04-22] MEDS ORDERED: FUROSEMIDE 10 MG/ML 4 ML VIAL ONE (12:05)
[2021-04-22] MEDS ORDERED: FUROSEMIDE 10 MG/ML 4 ML VIAL IV ONE (12:10)
--- NOTE | 2021-04-22 12:29 | P.TEE ---
Indications for Procedure(s): Assess mitral regurgitation Date of Procedure: 04/22/21 Preoperative Diagnosis: Moderate mitral regurgitation Postoperative Diagnosis: Moderate mitral regurgitation Procedure(s) Performed: VIRGEN Description of Procedure(s): INDICATION: This is a 70-year-old female who was admitted to the hospital with the CHF with positive troponin and evidence of moderate mitral regurgitation. Cardiac cath showed normal coronary arteries. Advised to have VIRGEN for further evaluation CONSENT: . Informed verbal consent is obtained from the patient and family PROCEDURE: . Patient was brought to the lab in a fasting state. She was given 1 .5 milligrams of Versed and 25 mics of fentanyl. A lubricated Omni probe was introduced in the oropharynx and advanced into the esophagus and multiple views were obtained both from the esophagus and stomach. Color, pulsed and continuous Doppler studies were performed. Saline contrast bubble injection is done. Patient tolerated the procedure well FINDINGS: . The aortic valve is normal. The mitral valve structurally appear to be normal with minimal prolapse. There is mitral regurgitation which appeared to be moderate.The PISA value is about 0.6 to .8. The mitral regurgitation appears to be eccentric, directed laterally. Left atrium appeared mildly enlarged. Left atrial appendage is free of any clot. No spontaneous flow across the interatrial septum. Saline contrast bubble injection showed some few late arrival bubbles. Left ventricle function appeared to be good. The tricuspid valve showed mild regurgitation. Aorta did not reveal any significant plaque IMPRESSION: Moderate mitral regurgitation with evidence of mitral valve thickening and mild prolapse. Mild tricuspid regurgitation. No clot in the left atrial appendage. No definite PFO. The LV function is preserved. Left atrium appeared mildly enlarged PLAN: Continuation of medical therapy. Second opinion from surgeons regarding mitral regurgitation.
[2021-04-22] MEDS: SODIUM CHLORIDE 0.9% 1,000 ML IV SCH ×2 (13:44→14:06)
--- NOTE | 2021-04-22 15:16 | P.PN ---
Subjective Progress Note Date: 04/22/21 Patient is a pleasant 70-year-old the female came in with compensative shortness of breath orthopnea and possible proximal nocturnal dyspnea which started yesterday. Patient also comparing of dry cough. Patient was complaining of pain in between the shoulder blades still has her gallbladder. Patient was recently hospitalized and subsequently was discharged after she was treated for atrial fibrillation at the time patient the came in with chest pain at this time patient denied any chest pain. Patient is found to be in congestive heart failure with pulmonary edema and patient was started on IV Lasix. Patient is on metoprolol dose of which has been cut down recently because of side effects. Patient is also on Eliquis and flecainide. Flecainide was discontinued. Echo cardiac exam was obtained while at echocardiogram is being done I was present at bedside it appears patient may have decreased EF of around 40-45% with possible anti-wall motion abnormalities and a preferred cardiology patient may end up needing cardiac catheterization. Because of her shoulder blade pain ultrasound of the gallbladder is being obtained as well. 04/22/21 Patient is evaluated at the bedside today status post cardiac catheterization. Patient has family members present at the bedside as well. Patient cardiac catheterization was clear at this time. Patient's recent echo done in March 2021 revealed an ejection fraction of 55-60%. Patient's most recent echo performed in this hospitalization revealed an ejection fraction of 40-45%, [id number] mitral regurgitation is present, mild tricuspid regurgitation, mild pulmonary hypertension. Chest x-ray on admission revealed a small pleural effusion and pulmonary interstitial up he edema that could be acute congestive heart failure that appears new compared to previous exam. Patient was evaluated by cardiology who recommended a cardiac catheterization today. Patient also had a VIRGEN, performed today as well as a repeat echocardiogram. VIRGEN revealed a moderate mitral regurgitation with evidence of mitral valve thickening and mild prolapse. Awaiting repeat echocardiogram results. Patient will continue IV Lasix at this time. Patient denies any chest pain, shortness of breath, cough at this time. Patient is currently on bed rest status post cardiac cath. Patient currently denies any abdominal pain, patient reports that the shoulder blade pain has resolved at this time. Patient will follow-up with general surgery outpatient for her gallstones. ROS: Constitutional: Denied any fatigue denied any fever. Cardio vascular: denied any chest pain, palpitations Gastrointestinal denied any nausea vomiting Pulmonary: Denied any shortness of breath cough Neurologic denied any new focal deficits All inpatient medications were reviewed and appropriate changes in these medications as dictated in the interval history and assessment and plan. PHYSICAL EXAMINATION: GENERAL: The patient is alert and oriented x3, not in any acute distress. Well developed, well nourished. HEENT: Pupils are round and equally reacting to light. EOMI. No scleral icterus. No conjunctival pallor. Normocephalic, atraumatic. No pharyngeal erythema. No thyromegaly. CARDIOVASCULAR: S1 and S2 present. No murmurs, rubs, or gallops. PULMONARY: mild crackles in the lung bases ABDOMEN: Soft, nontender, nondistended, normoactive bowel sounds. No palpable organomegaly. MUSCULOSKELETAL: No joint swelling or deformity. EXTREMITIES: No cyanosis, clubbing, or pedal edema. NEUROLOGICAL: Gross neurological examination did not reveal any focal deficits. SKIN: No rashes. Assessment and plan - congestive heart failure new-onset acute systolic dysfunction with acute exacerbation, EF 40-45%. patient is on IV Lasix will be continued, pending repeat echocardiogram. Moderate mitral regurgitation, history of mitral regurgitation, appreciate surgical input. -Hypothyroidism -Shoulder blade pain ultrasound of the gallbladder revealed cholelisthiasis. Follow up gen surg outpatient -transaminitis - improving, current levels are down to AST 42, ALT 90. Most likely related to hepatic congestion related to acute systolic congestive heart failure. -Leukocytosis, reactive in nature, continue to monitor. DVT prophylaxis: Early ambulation, The plan is for patient to be evaluated by surgical services for a moderate mitral valve regurgitation. Recommendations from cardiology. Patient will continue IV Lasix. Repeat echo results are pending. Encourage ambulation. Patient will have repeat laboratory values done in the morning. Patient can follow up with general surgery outpatient for a findings of cholelithiasis on ab dominal ultrasound. No further workup at this time. Continue with all the current medications. Patient and family have been updated on the plan of care. Objective - Vital Signs Vital signs: Vital Signs Temp 98 F 04/22/21 14:07 Pulse 48 L 04/22/21 14:07 Resp 16 04/22/21 14:07 BP 123/57 04/22/21 14:07 Pulse Ox 98 04/22/21 14:07 Intake & Output 04/21/21 04/22/21 04/22/21 18:59 06:59 18:59 Intake Total 118 90.011 100 Output Total 1050 450 Balance 118 -959.989 -350 Weight 70 kg Intake: IV 100 Intake, IV Titration 90.011 Amount Heparin Sod,Pork in 0.45% 90.011 NaCl 25,000 unit In 0.45 % NaCl 1 250ml.bag @ 12 UNITS/KG/HR 9.525 mls/hr IV .Q24H [facility] Rx#: [id number] Oral 118 0 Output: Urine 1050 450 Other: Voiding Method Toilet Toilet Toilet # Voids 1 2 - Labs CBC & Chem 7: 04/22/21 07:31 04/22/21 07:31 Labs: Abnormal Lab Results - Last 24 Hours (Table) 04/21/21 04/22/21 04/22/21 Range/Units 22:23 07:31 07:31 WBC 12.5 H (3.8-10.6) k/uL Neutrophils # 9.2 H (1.3-7.7) k/uL APTT 38.4 H (22.0-30.0) sec Carbon Dioxide 31 H (22-30) mmol/L BUN 18 H (7-17) mg/dL Glucose 109 H (74-99) mg/dL AST 42 H (14-36) U/L ALT 90 H (4-34) U/L 04/22/21 Range/Units 07:31 WBC (3.8-10.6) k/uL Neutrophils # (1.3-7.7) k/uL APTT 63.4 H (22.0-30.0) sec Carbon Dioxide (22-30) mmol/L BUN (7-17) mg/dL Glucose (74-99) mg/dL AST (14-36) U/L ALT (4-34) U/L Assessment and Plan Time with Patient: Greater than 30
[2021-04-23] MEDS: LEVOTHYROXINE 88 MCG TAB PO SCH (05:56)
[2021-04-23 08:16] VITALS: RESP 18
[2021-04-23] MEDS: SODIUM CHLORIDE 0.9% 1,000 ML IV SCH ×2 (08:20→14:41)
[2021-04-23] MEDS: FUROSEMIDE 10 MG/ML 4 ML VIAL IV SCH (08:22)
[2021-04-23] MEDS ORDERED: LOPERAMIDE 2 MG CAP PO STA (08:41)
[2021-04-23] MEDS ORDERED: APIXABAN 5 MG TAB PO SCH (10:03)
[2021-04-23] MEDS: METOPROLOL TARTRATE 25 MG TAB PO SCH (10:14)
[2021-04-23 11:24] LABS: Basophils # (A) 0.1 k/uL (0-0.2); Basophils % (A) 1 %; Eosinophils % (A) 0 %; HCT 44.7 % (34.0-46.0); HGB 14.3 gm/dL (11.4-16.0); Lymphocytes # (A) 2.1 k/uL (1.0-4.8); Lymphocytes % (A) 20 %; MCH 29.8 pg (25.0-35.0); MCHC 32.1 g/dL (31.0-37.0); MCV 92.9 fL (80.0-100.0); Mean Platelet Volume 8.8; Monocytes # (A) 0.4 k/uL (0-1.0); Monocytes % (A) 4 %; Neutrophils # (A) 7.5 k/uL (1.3-7.7); Neutrophils % (A) 74 %; Platelet Count 298 k/uL (150-450); RBC 4.81 m/uL (3.80-5.40); RDW 14.5 % (11.5-15.5); WBC 10.2 k/uL (3.8-10.6)
[2021-04-23 11:30] VITALS: BP 120/68; PULSE 55; TEMP 98
[2021-04-23] MEDS ORDERED: lisinopriL 5 MG TAB PO SCH (11:30)
[2021-04-23 11:33] LABS: Calcium 9.3 mg/dL (8.4-10.2); Magnesium 1.9 mg/dL (1.6-2.3); Potassium 3.2 mmol/L (3.5-5.1)
[2021-04-23] MEDS ORDERED: Potassium Replacement Protocol 1 EACH MISC MISCELLANE PRN (11:39)
[2021-04-23] MEDS: POTASSIUM CHLORIDE ER 20 MEQ TAB.ER PO SCH ×2 (11:52→13:25)
--- NOTE | 2021-04-23 11:57 | P.GSCN ---
History of Present Illness Consult date: 04/23/21 Reason for Consult: mitral regurgitation Requesting physician: Matthieu Carlson History of present illness: This is a 70 year old female who follows on an outpatient basis with physician recruitment and outreach assistant Edith Clemente, who resides in the [facility] and who is here for vacation. She has a previous medical history of hypothyroid, recent diagnosis of paroxysmal atrial flutter on Eliquis for anticoagulation, and no history of heart disease. She presented to [facility] emergency room with complaints of shortness of breath with laying flat and with exertion, dry cough, lower extremity edema, and right shoulder discomfort for a few days. Chest x-ray demonstrated findings consistent with acute heart failure. EKG showed NSR with nonspecific ST abnormalities. Initial troponin was negative, but increased to 0.271. She was admitted for evaluation and treatment with consultation to cardiology. Workup included heart catheterization which demonstrated normal coronaries, LV gram showed mitral regurgitation. Transthoracic and transesophageal echocardiogram confirmed mitral regurgitation. Consultation was placed to Dr. Murillo for surgical recommendations. Review of Systems ROS was completed and was negative except as noted - Cardiovascular Reports as per HPI, Reports chest pain, Reports shortness of breath Past Medical History Past Medical History: Atrial Flutter, Heart Failure, Thyroid Disorder Additional Past Medical History / Comment(s): mitral valve regurgitation History of Any Multi-Drug Resistant Organisms: None Reported Past Surgical History: Hysterectomy, Orthopedic Surgery Additional Past Surgical History / Comment(s): hip surgery Past Anesthesia/Blood Transfusion Reactions: Previous Problems w/ Anesthesia Additional Past Anesthesia/Blood Transfusion Reaction / Comm: hard to wake up Past Psychological History: No Psychological Hx Reported Smoking Status: Never smoker Past Alcohol Use History: Occasional Past Drug Use History: None Reported - Past Family History Father Family Medical History: Cancer Additional Family Medical History / Comment(s): lung cancer, ETOH Mother Family Medical History: COPD Sister(s) Family Medical History: Cancer, Hypertension Medications and Allergies Home Medications Medication Instructions Recorded Confirmed Type Flecainide [Tambocor] 50 mg PO Q12HR 90 Days #180 tab 04/11/21 04/21/21 Rx Apixaban [Eliquis] 5 mg PO BID 30 Days #60 tab 04/12/21 04/21/21 Rx Levothyroxine Sodium [Synthroid] 88 mcg PO DAILY 04/21/21 04/21/21 History Metoprolol Tartrate [Lopressor] 25 mg PO BID 04/21/21 04/21/21 History Allergies Allergy/AdvReac Type Severity Reaction Status Date / Time No Known Allergies Allergy Verified 04/21/21 06:38 Surgical - Exam Vital Signs Temp Pulse Resp BP Pulse Ox 98 F 66 18 196/86 95 04/21/21 00:37 04/21/21 00:37 04/21/21 00:37 04/21/21 00:37 04/21/21 00:37 CONSTITUTIONAL: Awake and alert, appears comfortable, cooperative, well- developed, well-nourished, no pain, no acute distress EYES: Pupils equal, round, reactive to light, normal ocular movement ENT: Moist mucous membranes without oral lesions present NECK: No masses, no bruits, trachea midline RESPIRATORY: Lungs sounds diminished bilaterally with faint crackles in the bases. Respirations even, nonlabored. Currently on room air with oxygen saturation 90%, was previously on 2 LPM NC with oxygen saturation 97%. Strong cough. No chest wall deformities. No clubbing or cyanosis present CARDIOVASCULAR: S1, S2 present. Slow but regular rate and rhythm, sinus carole on telemetry. Palpable peripheral pulses bilaterally. Trace bilateral lower extremity edema present. No calf pain or tenderness noted. GASTROINTESTINAL: Abdomen soft, nontender, nondistended without masses or organomegaly noted. There is no rebound or guarding present. Active bowel sounds present 4 quadrants. GENITOURINARY: Deferred INTEGUMENTARY: Skin is warm and dry with evidence of good perfusion. NEUROLOGIC: Cranial nerves II through XII intact, normal coordination, no obvious motor or sensory deficits, speech is normal MUSKULOSKELETAL: Able to move all extremities, strength equal bilaterally, normal posture PSYCHIATRIC: Alert and oriented to person place and time, appropriate affect, intact judgment and insight Results - Labs 04/23/21 10:53 04/22/21 07:31 - Imaging Chest x-ray: report reviewed, image reviewed EKG: image reviewed Additional studies: heart catheterization and echo films reviewed by Dr. Murillo Assessment and Plan Assessment: 1. Mitral regurgitation 2. Acute heart failure 3. Shortness of breath related to above 4. History of typical atrial flutter, on Eliquis for anticoagulation, currently sinus carole 5. Hypothyroid Plan: The patient was seen and examined with Dr. Murillo. She has mild to moderate MR, mild AI, decreased LV function. Based on the current studies there is no indication for surgical intervention. Her heart failure needs to be maximized. In addition, she was hypertensive on admission. We recommend afterload reduct ion. VIRGEN can be repeated in the future if heart failure symptoms persist despite maximized medical management. This was discussed with the patient, her family, and Dr. Carlson. Thank you for this consult. Please call us with any further questions. Time with Patient: Greater than 30
--- NOTE | 2021-04-23 12:13 | ECHOF ---
Referral Reason:per dr sandy MEASUREMENTS -------- HEIGHT: 160.0 cm WEIGHT: 77.1 kg BP: RVIDd: 2.6 cm (< 3.3) IVSd: 1.0 cm (0.6 - 1.1) LVIDd: 4.5 cm (3.9 - 5.3) LVPWd: 1.4 cm (0.6 - 1.1) IVSs: 1.5 cm LVIDs: 3.4 cm LVPWs: 1.5 cm LA Diam: 3.3 cm (2.7 - 3.8) LAESV Index (A-L): 30.29 ml/m Ao Diam: 2.8 cm (2.0 - 3.7) AV Cusp: 1.7 cm (1.5 - 2.6) LA Diam: 3.9 cm (2.7 - 3.8) MV EXCURSION: 21.518 mm (> 18.000) MV EF SLOPE: 118 mm/s (70 - 150) EPSS: 0.8 cm MV E Markus: 0.55 m/s MV DecT: 126 ms MV A Markus: 0.59 m/s MV E/A Ratio: 0.93 RAP: 5.00 mmHg RVSP: 25.78 mmHg FINDINGS -------- Sinus rhythm. This was a technically good study. LV size, wall thickness and systolic function are normal, with an EF greater than 55%. The left anurag tricular size is normal. The right ventricle is normal in size. LA is midly dilated 29-33ml/m2. The right atrial size is normal. There is mild aortic valve sclerosis. Trace to mild aortic regurgitation. Mild mitral annular calcification present. Mild mitral regurgitation is present. Mild tricuspid regurgitation present. Right ventricular systolic pressure is normal at < 35 mmHg. There is no pulmonic regurgitation present. There is no pericardial effusion. CONCLUSIONS -------- 1. LV size, wall thickness and systolic function are normal, with an EF greater than 55%. 2. The left ventricular size is normal. 3. The right ventricle is normal in size. 4. LA is midly dilated 29-33ml/m2. 5. The right atrial size is normal. 6. There is mild aortic valve sclerosis. 7. Trace to mild aortic regurgitation. 8. Mild mitral annular calcification present. 9. Mild mitral regurgitation is present. 10. Mild tricuspid regurgitation present. 11. There is no pulmonic regurgitation present. 12. There is no pericardial effusion. EXPERIMENTAL PREFLIGHT MECHANIC: Dana Waters RDCS
--- NOTE | 2021-04-23 13:59 | XR ---
EXAMINATION TYPE: XR chest 2V DATE OF EXAM: 04/23/2021 COMPARISON: 04/21/2021 INDICATION: Shortness of breath TECHNIQUE: Frontal and lateral views of the chest are obtained. FINDINGS: The heart size is normal. The pulmonary vasculature is normal. Minimal infiltrate along the bases may be present. Correlate for atelectasis and atypical pulmonary e herlinda. Atypical pneumonia could be considered. Findings have improved over the interval. IMPRESSION: 1. Minimal residual infiltrates improvement over the interval..
--- NOTE | 2021-04-23 14:32 | P.DS ---
<Reji Crabtree - Last Filed: 04/23/21 14:28> Providers Expected date of discharge: 04/23/21 Hospital Course: Discharge Diagnosis: Acute systolic congestive heart failure with mild to moderately impaired EF of 40-45% Elevated troponin level Mitral valve regurgitation with mild prolapse Hypokalemia Paroxysmal atrial fibrillation on anticoagulation with Eliquis. Hypothyroidism Transaminitis, improved, likely secondary to hepatic congestion resulting from acute systolic heart failure Shoulder blade pain, ultrasound revealing cholelithiasis Hospital Course: Patient is a very pleasant 70-year-old female with a past medical history of hypothyroidism and recently diagnosed atrial fibrillation currently on anticoagulation with Eliquis. She presented to the hospital on 04/21/21 with a chief complaint of shortness of breath. Hx this bradycardia was completed showing interstitial pulmonary edema with small pleural effusions indicated for acute CHF. EKG was completed revealing normal sinus rhythm at 74 bpm with non- specific T-wave abnormalities, no ST elevation or depression noted showing no signs of acute ischemia. Troponins were trended resulting at < 0.012, 0.161, and 0.271. Patient started on diuresis and admitted for acute congestive heart failure and elevated troponin level under hospitalist medicine services with consultation to cardiology. Echocardiogram completed showing a mild to moderately impaired EF between 40-45% with hypokinesis movement throughout anterior left ventricular wall, mild to moderate mitral regurgitation and mild pulmonary hypertension. Patient underwent cardiac cath on 04/21/21 showing normal coronary arteries with mitral valve prolapse with moderate mitral valve regurgitation and hypokinetic wall motion abnormalities of the anterobasal segment possibly secondary to myocarditis. A VIRGEN was completed on 04/22/21 revealing moderate mitral valve regurgitation with evidence of mitral valve thickening and mild prolapse with preserved function of LV and mild enlargement of left atrium. Cardiology recommending continuation of medical therapy and consulted cardiothoracic surgery at this time. Cardiothoracic surgery evaluated patient stating no indication for surgical intervention at this time recommending maximization of medical management with additional blood pressure medication to reduce afterload. Flecainide was discontinued, metoprolol was de creased to 12.5 mg twice daily, and patient started on lisinopril 5 mg daily. Diuretic also added with Lasix 40 mg daily. Patient to otherwise continue anticoagulation with Eliquis. While hospitalized, pt also reported some left shoulder blade pain and an ultrasound of her gallbladder was ordered revealing cholelithiasis. She was also found to have mild transaminitis with ALT of 147 and AST of 100, this improved with repeat labs revealing ALT of 90 and AST of 42. No surgical intervention needed at this time, patient may follow up outpatient with general surgery for evaluation of possible elective cholecystectomy in the future. Patient stable for discharge home with her family at this time. Patient to follow up outpatient with her PCP over the next 1-3 days after discharge upon returning to [place] and with her interlibrary loan specialist in the next 1-2 weeks as we discussed. All discharge instructions were reviewed with patient and her family and all questions answered at this time. Patient also given scripts for BMP and magnesium for close monitoring of electrolytes and renal function with diuresis. Results to be sent to PCP for follow-up. Physical examination: Patient seen and examined at bedside. Patient reports resolution of shortness of breath. She currently denies experiencing any chest pain, palpitations, shortness of breath, or dyspnea with exertion. During assessment patient successfully walked to and from bathroom on room air and upon returning SpO2 90%. Vital signs reviewed and stable. General: Nontoxic, no distress and appears stated age. Derm: Skin warm and dry, normal coloration for ethnicity. Head: Atraumatic, normocephalic and symmetric. Eyes: EOMs intact, no lid lag, and anicteric sclera Mouth: no lip lesions, mucus membranes moist Cardiovascular: regular rate and rhythm with normal S1S2, no murmur, gallop, or rub. Positive posterior tibial pulses bilaterally, and cap refill < 2 seconds. Lungs: Respirations even, regular, and unlabored on room air. Lungs CTA bilaterally, no rhonchi, no rales, no wheezing, and no accessory muscle usage. SpO2 90% on room air. Abdominal: soft, nontender to palpation, no guarding, no appreciable organomegaly Ext: ROM intact. No gross muscle atrophy, no edema, no contractures Neuro: Speech clear, face symmetrical and CN II-XII grossly intact with no noted focal neuro deficits Psych: Alert and oriented to person, place, time, and situation. Appropriate and pleasant affect. A total of 45 minutes of time were spent preparing this complex discharge summ renea. Patient Condition at Discharge: Stable Plan - Discharge Summary Discharge Rx Participant: No New Discharge Prescriptions: New lisinopriL [Zestril] 5 mg PO DAILY 30 Days #30 tab Furosemide [Lasix] 40 mg PO DAILY 30 Days #30 tab Metoprolol Tartrate [Lopressor] 12.5 mg PO BID 30 Days #60 tab Continue Apixaban [Eliquis] 5 mg PO BID 30 Days #60 tab Levothyroxine Sodium [Synthroid] 88 mcg PO DAILY Discontinued Flecainide [Tambocor] 50 mg PO Q12HR 90 Days #180 tab Metoprolol Tartrate [Lopressor] 25 mg PO BID Discharge Medication List Apixaban [Eliquis] 5 mg PO BID 30 Days #60 tab 04/12/21 [Rx] Levothyroxine Sodium [Synthroid] 88 mcg PO DAILY 04/21/21 [History] Furosemide [Lasix] 40 mg PO DAILY 30 Days #30 tab 04/23/21 [Rx] Metoprolol Tartrate [Lopressor] 12.5 mg PO BID 30 Days #60 tab 04/23/21 [Rx] lisinopriL [Zestril] 5 mg PO DAILY 30 Days #30 tab 04/23/21 [Rx] Follow up Appointment(s)/Referral(s): None,Stated [Primary Care Provider] - (Patient following up with her primary care provider and interlibrary loan specialist in [place] as discussed.) Ambulatory/Diagnostic Orders: Basic Metabolic Panel [LAB.AMB] Time Frame: 3 Days, Location: None Selected Magnesium [LAB.AMB] Time Frame: 3 Days, Location: None Selected Patient Instructions/Handouts: *Surgery [facility] - After Heart Catheterization - [employer] Instructions, Heart Failure (DC) Activity/Diet/Wound Care/Special Instructions: Activity: As tolerated. Take breaks as needed. Diet: Heart healthy and carb consistent diet. Avoid salts, or foods with hidden salts such as canned or boxed foods and frozen dinners. Extra salt makes your heart work harder and traps the fluid in your body for longer. Special Instructions: Weigh yourself every morning after you urinate. If you gain 3 pounds overnight or more than 5 pounds in one week, call your primary physician and interlibrary loan specialist for guidance on your medications or they may want to see you in their office. Keep a daily log of your weights and be sure to bring with you at follow up visits with your PCP and interlibrary loan specialist. Take all of your medications as directed, especially your water pills. NEVER skip a dose. And remember to keep all of your doctor's appointments and follow- up as needed. Elevate your legs when you are not up moving around to help with circulation and prevent swelling. Compression stockings are also a great way to improve lower extremity circulation and prevent/improve lower extremity edema. Call your primary care provider and interlibrary loan specialist if you notice any extra swelling in your legs, ankles, feet or abdomen, if you have a new dry cough, if your shortness of breath worsens with activity or at rest, or if you feel more fatigued. Thank you for allowing us to participate in your care, it was truly a pleasure having you for our patient!!! Have a safe drive back to [place]!! As we discussed, great vitamin supplements to take would be potassium 10 mEq daily along with a daily multivitamin. Discharge Disposition: HOME SELF-CARE <Jose Gooden - Last Filed: 04/23/21 17:08> Providers Date of admission: 04/21/21 03:07 Attending physician: Martina Duncan DO Consults: 04/21/21 02:32 Consult Physician Routine Consulting Provider: [facility] Consult Reason/Comments: CHF?; Pulmonary edema Do you want consulting provider notified?: Yes 04/23/21 10:04 Consult Physician Routine Consulting Provider: Calvin Murillo Consult Reason/Comments: Mitral Regurg Do you want consulting provider notified?: Yes Primary care physician: Stated None Hospital Course: Patient was seen and evaluated by me on the day of discharge. She appeared euvolemic. Lungs are clear to auscultation bilaterally. No pitting edema around the ankles. Patient would like to follow-up with cardiology in [place]. I explained to her and her family that she has nonischemic cardiomyopathy given her recent left heart catheterization showed no significant coronary artery disease. Patient was advised to continue to monitor her weight daily and take medications as directed.
--- NOTE | 2021-04-23 14:57 | P.PN ---
Subjective Progress Note Date: 04/23/21 HISTORY OF PRESENT ILLNESS: This is a 70-year-old female who underwent cardiac catheterization yesterday with Dr. Carlson. Cardiac cath revealed normal coronary arteries. Mitral valve prolapse with moderate mitral regurgitation. Wall motion abnormalities with hypokinesis of the anterior basal segment could be secondary to myocarditis. Patient also underwent VIRGEN revealing moderate mitral regurgitation with evidence of mitral valve thickening and mild prolapse. Mild tricuspid regurgitation no clot in the left atrial appendage. No definite PFO. LV function is preserved. She denies chest pain or pressure. Denies shortness of breath. Vital signs are stable. She is hoping to be discharged home today. PHYSICAL EXAM: VITAL SIGNS: Reviewed. GENERAL: Well-developed in no acute distress. NECK: Supple. No JVD or thyromegaly LUNGS: Respirations even and unlabored. Lungs essentially clear to auscultation bilaterally. HEART: Regular rate and rhythm. S1 and S2 heard. EXTREMITIES: Normal range of motion. No clubbing or cyanosis. Peripheral pu lses intact. No lower extremity edema ASSESSMENT: Acute systolic congestive heart failure Paroxysmal atrial fibrillation, and into quite elation with Eliquis Moderate mitral regurgitation PLAN: Transition patient over to oral Lasix. Decrease beta darrell secondary to bradycardia Resume Eliquis Patient may be discharged home today pending evaluation by cardiothoracic surgery Nurse practitioner note has been reviewed by physician. Signing provider agrees with the documented findings, assessment, and plan of care. Objective - Vital Signs Vital signs: Vital Signs Temp 98.0 F 04/23/21 11:29 Pulse 55 L 04/23/21 14:00 Resp 18 04/23/21 14:00 BP 120/68 04/23/21 11:29 Pulse Ox 90 L 04/23/21 11:29 Intake & Output 04/22/21 04/23/21 04/23/21 18:59 06:59 18:59 Intake Total 499.989 96.127 240 Output Total 1450 850 200 Balance -950.011 -753.873 40 Weight 76.7 kg Intake: IV 100 Intake, IV Titration 159.989 96.127 Amount Heparin Sod,Pork in 0.45% 159.989 96.127 NaCl 25,000 unit In 0.45 % NaCl 1 250ml.bag @ 12 UNITS/KG/HR 9.525 mls/hr IV .Q24H [facility] Rx#: [id number] Oral 240 240 Output: Urine 1450 850 200 Other: Voiding Method Toilet Toilet Toilet # Voids 2 4 # Bowel Movements 4 - Labs CBC & Chem 7: 04/23/21 10:53 04/23/21 10:53 Labs: Abnormal Lab Results - Last 24 Hours (Table) 04/23/21 Range/Units 10:53 Potassium 3.2 L (3.5-5.1) mmol/L Carbon Dioxide 31 H (22-30) mmol/L BUN 20 H (7-17) mg/dL Glucose 105 H (74-99) mg/dL
[2021-04-23] MEDS ORDERED: METOPROLOL TARTRATE 12.5 MG TAB PO SCH (21:00)
[2021-04-24] MEDS ORDERED: FUROSEMIDE 40 MG TAB PO SCH (09:00)
== END 2021-04-23 14:27 | disposition home or self-care (01) | DRG 287 ==
LOC: EC 00:36 → 3SCARD 03:07
PROVIDERS: ADMIT Internal Medicine; ATTEND Internal Medicine
PROC: B2111ZZ Fluoroscopy of Multiple Coronary Arteries using Low Osmolar Contrast (ICD-10-PCS; principal; 2021-04-22 10:30)
PROC: 4A023N7 Measurement of Cardiac Sampling and Pressure, Left Heart, Percutaneous Approach (ICD-10-PCS; principal; 2021-04-22 10:30)
PROC: B2151ZZ Fluoroscopy of Left Heart using Low Osmolar Contrast (ICD-10-PCS; principal; 2021-04-22 10:30)
PROC: B246ZZ4 Ultrasonography of Right and Left Heart, Transesophageal (ICD-10-PCS; 2021-04-22 10:30)
DX: I50.21 Acute systolic (congestive) heart failure (principal); I48.3 Typical atrial flutter; I42.8 Other cardiomyopathies; R77.8 Other specified abnormalities of plasma proteins; Z79.01 Long term (current) use of anticoagulants; D72.829 Elevated white blood cell count, unspecified; E03.9 Hypothyroidism, unspecified; E87.6 Hypokalemia; I27.20 Pulmonary hypertension, unspecified; I34.0 Nonrheumatic mitral (valve) insufficiency; I34.1 Nonrheumatic mitral (valve) prolapse; I48.0 Paroxysmal atrial fibrillation; I49.1 Atrial premature depolarization; K76.1 Chronic passive congestion of liver; K80.20 Calculus of gallbladder without cholecystitis without obstruction; Z79.890 Hormone replacement therapy; Z79.899 Other long term (current) drug therapy; Z80.1 Family history of malignant neoplasm of trachea, bronchus and lung; Z82.49 Family history of ischemic heart disease and other diseases of the circulatory system; Z82.5 Family history of asthma and other chronic lower respiratory diseases; Z90.710 Acquired absence of both cervix and uterus; Z98.890 Other specified postprocedural states; Z81.1 Family history of alcohol abuse and dependence
CPT/HCPCS: 36415; 71046; 76705; 80048; 80053; 83605; 83735; 83880; 84132; 84484; 85025; 85379; 85610; 85730; 93005; 93306; 93308; 93312; 93320; 93325; 93458